=== PATIENT | male | born 1995 | race Caucasian/White ===

== ENCOUNTER 2017-03-03 16:16 | Inpatient (IN) | payer OTHER ==
[2017-03-03] MEDS ORDERED: OLANZapine 10 MG/2 ML VIAL IM ONE (16:23)
[2017-03-03] MEDS ORDERED: OLANZapine DISINTEGR 10 MG TAB PO ONE (16:23)
--- NOTE | 2017-03-03 16:25 | EDPHY ---
HPI/HX/ROS/PE/MDM Narrative: CHIEF COMPLAINT: Odd behavior HPI: This patient is a 21 year old male arriving via EMS for mental health evaluation of strange behaviors. He is currently staying at [facility] and began asking for drugs and attempting to touch people inappropriately. Upon arrival, he is asking to be taken to penitentiary and states "I am the next Michael Kamron". REVIEW OF SYSTEMS: Aside from elements discussed in the HPI, a comprehensive 10-point review of systems was reviewed and is negative. PMH: Bipolar, schizophrenic SOCIAL HISTORY: Staying at [facility]. PHYSICAL EXAM: General:Patient is alert, in no acute distress. ENT:Eyes are normal to inspection. ENT inspection normal. Neck: Normal inspection. Full range of motion. Respiratory:No respiratory distress. Breath sounds normal bilaterally. Cardiovascular: Regular rate and rhythm. Strong peripheral pulses. Normal cap refill. Abdomen:The abdomen is nontender to palpation. There are no peritoneal signs. There are normal bowel sounds. Back: Normal to inspection. No tenderness to palpation. Skin: Normal color. No rash. Warm and dry. Extremities: Normal appearance. Full range of motion. Neuro: Oriented x3. Normal motor function. Normal sensory function. Portions of this note were transcribed by an ED scribe. I personally performed the history, physical exam, and medical decision making; and confirm the accuracy of the information in the transcribed note. (Nathaniel Vale) [id number]: This patient has been accepted at [address] [place] [address] [facility]. By Dr. Shukla. Patient will be appropriately transfer there. ( Dony Penny) - Data Points Laboratory Results: Laboratory Results 03/03/17 16:35 03/03/17 16:35 03/03/17 03/03/17 03/03/17 16:35 16:35 16:30 WBC 7.31 10^3/uL 10^3/uL (3.80-9.50) RBC 4.71 10^6/uL 10^6/uL (4.40-6.38) Hgb 14.2 g/dL g/dL (13.7-17.5) Hct 40.7 % % (40.0-51.0) MCV 86.4 fL fL (81.5-99.8) MCH 30.1 pg pg (27.9-34.1) MCHC 34.9 g/dL g/dL (32.4-36.7) RDW 12.6 % % (11.5-15.2) Plt Count 234 10^3/uL 10^3/uL (150-400) MPV 9.5 fL fL (8.7-11.7) Neut % (Auto) 57.0 % % (39.3-74.2) Lymph % (Auto) 25.6 % % (15.0-45.0) [place] % (Auto) 11.6 % % (4.5-13.0) Eos % (Auto) 5.2 % % (0.6-7.6) Baso % (Auto) 0.3 % % (0.3-1.7) Nucleat RBC Rel Count 0.0 % % (0.0-0.2) Absolute Neuts (auto) 4.17 10^3/uL 10^3/uL (1.70-6.50) Absolute Lymphs (auto) 1.87 10^3/uL 10^3/uL (1.00-3.00) Absolute Monos (auto) 0.85 10^3/uL H 10^3/uL (0.30-0.80) Absolute Eos (auto) 0.38 10^3/uL 10^3/uL (0.03-0.40) Absolute Basos (auto) 0.02 10^3/uL 10^3/uL (0.02-0.10) Absolute Nucleated RBC 0.00 10^3/uL 10^3/uL (0-0.01) Immature Gran % 0.3 % % (0.0-1.1) Immature Gran # 0.02 10^3/uL 10^3/uL (0.00-0.10) Sodium 142 mEq/L mEq/L (134-144) Potassium 4.5 mEq/L mEq/L (3.5-5.2) Chloride 107 mEq/L mEq/L (97-110) Carbon Dioxide 21 mEq/l L mEq/l (22-31) Anion Gap 14 mEq/L mEq/L (8-16) BUN 14 mg/dL mg/dL (7-23) Creatinine 0.8 mg/dL mg/dL (0.7-1.3) Estimated GFR > 60 Glucose 93 mg/dL mg/dL (70-100) Calcium 9.1 mg/dL mg/dL (8.5-10.4) Urine Opiates Screen NEGATIVE (NEGATIVE) Urine Barbiturates NEGATIVE (NEGATIVE) Ur Phencyclidine Scrn NEGATIVE (NEGATIVE) Ur Amphetamine Screen NEGATIVE (NEGATIVE) U Benzodiazepines Scrn NEGATIVE (NEGATIVE) Urine Cocaine Screen NEGATIVE (NEGATIVE) U Marijuana (THC) Screen NEGATIVE (NEGATIVE) Ethyl Alcohol < 10 mg/dL mg/dL (0-10) Medications Given: Discontinued Medications Olanzapine (Zyprexa Im Injection) 10 mg IM EDNOW ONE Stop: 03/03/17 16:24 Last Admin: 03/03/17 16:41 Dose: Not Given Olanzapine (Zyprexa Zydis) 10 mg PO EDNOW ONE Stop: 03/03/17 16:24 Last Admin: 03/03/17 16:42 Dose: 10 mg General Initial Vital Signs: Initial Vital Signs Temperature (C) 36.5 C 03/03/17 16:42 Heart Rate 110 H 03/03/17 16:42 Respiratory Rate 16 03/03/17 16:42 Blood Pressure 135/89 H 03/03/17 16:42 O2 Sat (%) 98 03/03/17 16:42 O2 Delivery Mode Room Air Allergies/Adverse Reactions: No Known Allergies Allergy (Unverified 04/10/13 21:02) Home Medications: Medication Instructions Recorded CLONAZEPAM 03/03/17 Depakote 03/03/17 Ivalee Carbonate 03/03/17 Metformin HCl 03/03/17 Propranolol HCl 03/03/17 Seroquel 03/03/17 Zyprexa 03/03/17 Departure - Departure Disposition: [facility] IP Clinical Impression: Suicidal behavior Qualifiers: Attempted self-injury: without attempted self-injury Qualified Code(s): R46.89 - Other symptoms and signs involving appearance and behavior Condition: Fair Referrals: NONE *PRIMARY CARE P,. [Primary Care Provider] - As per Instructions
[2017-03-03 17:32] LABS: % IMMATURE GRANULYOCYTES 0.3 % (0.0-1.1); ABSOLUTE IMMATURE GRANULOCYTES 0.02 10^3/uL (0.00-0.10); ADD DIFF? NO; ADD MORPH? NO; ADD SCAN? NO; ATYPICAL LYMPHOCYTE FLAG 0 (0-99); FRAGMENT RBC FLAG 0 (0-99); HEMATOCRIT 40.7 % (40.0-51.0); HEMOGLOBIN 14.2 g/dL (13.7-17.5); LEFT SHIFT FLG 0 (0-99); LIPEMIA HEMOLYSIS FLAG 90 (0-99); MEAN CELL HEMOGLOBIN 30.1 pg (27.9-34.1); MEAN CELL HEMOGLOBIN CONCENTR. 34.9 g/dL (32.4-36.7); MEAN CELL VOLUME 86.4 fL (81.5-99.8); MEAN PLATELET VOLUME 9.5 fL (8.7-11.7); PLATELET CLUMPS FLAG 0 (0-99); PLATELET COUNT 234 10^3/uL (150-400); RED BLOOD CELL COUNT 4.71 10^6/uL (4.40-6.38); RED CELL DISTRIBUTION WIDTH 12.6 % (11.5-15.2)
[2017-03-03 17:38] LABS: ANION GAP 14 mEq/L (8-16); CALCIUM 9.1 mg/dL (8.5-10.4); CARBON DIOXIDE 21 mEq/l (22-31); CHLORIDE 107 mEq/L (97-110); CREATININE 0.8 mg/dL (0.7-1.3); ETHANOL SERUM < 10 mg/dL (0-10); GLOMERULAR FILTRATION RATE > 60; GLUCOSE 93 mg/dL (70-100); POTASSIUM 4.5 mEq/L (3.5-5.2); SODIUM 142 mEq/L (134-144)
[2017-03-04] MEDS ORDERED: MAG HYDROX/AL HYDROX/SIMETH 30 ML UDCUP PO PRN (02:24)
[2017-03-04] MEDS ORDERED: ACETAMINOPHEN 325 MG TAB PO PRN (02:24)
[2017-03-04] MEDS ORDERED: MAGNESIUM HYDROXIDE 30 ML UDCUP PO PRN (02:24)
[2017-03-04] MEDS ORDERED: LORazepam 0.5 MG TAB PO PRN (02:24)
[2017-03-04] MEDS ORDERED: OLANZapine DISINTEGR 10 MG TAB PO PRN (02:28)
[2017-03-04] MEDS ORDERED: LITHIUM CARBONATE 600 MG CAP PO SCH (02:30)
[2017-03-04] MEDS ORDERED: DIVALPROEX NA 500 MG TAB PO SCH (02:30)
[2017-03-04] MEDS ORDERED: OLANZapine DISINTEGR 10 MG TAB PO SCH ×2 (02:30→21:00)
[2017-03-04] MEDS: NICOTINE POLACRILEX 2 MG GUM B PRN ×6 (02:39→20:18)
[2017-03-04] MEDS ORDERED: QUEtiapine FUMARATE 100 MG TAB PO ONE (08:00)
[2017-03-04] MEDS ORDERED: clonazePAM 1 MG TAB PO ONE (08:00)
[2017-03-04] MEDS ORDERED: HALOPERIDOL LACT 5 MG/ML INJ IM PRN (12:30)
[2017-03-04] MEDS ORDERED: BENZTROPINE MESYLATE 2 MG/2 ML INJ IM PRN (12:30)
[2017-03-04] MEDS ORDERED: LORazepam 2 MG/ML INJ IM PRN (12:30)
[2017-03-04] MEDS ORDERED: LORazepam 1 MG TAB ONE (13:09)
[2017-03-04] MEDS ORDERED: BENZTROPINE MESYLATE 1 MG TAB ONE (13:13)
[2017-03-04] MEDS: LORazepam 1 MG TAB PO PRN ×3 (13:18→21:31)
[2017-03-04] MEDS: HALOPERIDOL 2 MG TAB PO PRN ×3 (13:18→21:31)
--- NOTE | 2017-03-04 14:23 | GCON ---
[f rep st] CONSULTATION INTERNAL MEDICINE CONSULTATION DATE OF CONSULTATION: 03/04/2017 REFERRING PHYSICIAN: Kenneth Shukla MD REASON FOR REFERRAL: Medical clearance for inpatient behavioral health stay. HISTORY OF PRESENT ILLNESS: The patient has been admitted to [facility] via the emergency department from [facility], where he was a resident under treatment for mental illness, with diagnoses of bipolar disorder and schizophrenia. His behavior was apparently uncontrolled at [facility], including aggressiveness and inappropriate touching of others. He was evaluated by the mental health team and admitted for further psychiatric care. Currently he is without any acute complaints. PAST MEDICAL HISTORY: 1. He reports a history of cardiac dysrhythmia with rapid heartrate, for which he was treated with propranolol. 2. Hypothyroidism. 3. Tobacco dependence. 4. Right thumb fracture. PAST SURGICAL HISTORY: He has had a surgical repair of the right thumb fracture. MEDICATIONS: 1. Metformin 500 mg p.o. b.i.d. 2. Quetiapine 100 mg p.o. t.i.d. 3. [place] 600 mg p.o. b.i.d. 4. Clonazepam 1 mg p.o. t.i.d., and 1 mg p.o. q.i.d. p.r.n. 5. Propranolol 20 mg p.o. t.i.d. 6. Levothyroxine 50 mcg p.o. q. day. 7. Olanzapine 20 mg p.o. b.i.d. 8. Divalproex ER 1000 mg p.o. q. day, and 1500 mg p.o. q.h.s. 9. Quetiapine 100 mg p.o. q.i.d. p.r.n. 10. Olanzapine 5 mg p.o. b.i.d. p.r.n. 11. Milk of magnesia p.r.n. 12. Magnesium hydroxide p.r.n. 13. Ibuprofen 200 mg p.o. q.4 hours p.r.n. 14. Acetaminophen 650 mg p.o. q.4 hours p.r.n. 15. Diphenhydramine 50 mg p.o. t.i.d. p.r.n. ALLERGIES: He had an intolerance to Invega with bradycardia. SOCIAL HISTORY: He is a smoker. He has a history of alcohol and other substance abuse. He was living at [facility]. He asks if he can leave now and return to [facility]. He also reports that he is homeless. FAMILY HISTORY: There is a history of depression and alcoholism on both sides of his family. REVIEW OF SYSTEMS: He denies pain, fevers, chills, weight change, cough, dyspnea, palpitations, chest pain, nausea, vomiting, constipation, or diarrhea. Otherwise, a 10-point review of systems is negative. PHYSICAL EXAM: VITAL SIGNS: Blood pressure at 2:48 this morning was 116/70, heart rate was 91, respiratory rate was 18, oxygenation was 97% on room air, temperature was 36.4 degrees centigrade. His weight is 86.2 kg for a body mass index of 22.5. GENERAL: This is a well-nourished, well-developed man, somewhat unkempt, appears his chronologic age, cooperative, and in no acute distress. HEENT: Extraocular movements are intact. Pupils are equal, round, and reactive to light. Mucous membranes are moist. Dentition is in good condition. NECK: Supple. HEART: There is regular rate and rhythm with no murmurs, rubs, or gallops. LUNGS: Clear to auscultation bilaterally. ABDOMEN : Soft, nontender, nondistended with normoactive bowel sounds. EXTREMITIES: There is no cyanosis, clubbing, or edema. NEUROLOGIC: He is alert and oriented x3. Cranial nerves 2-12 are grossly intact. There is no focal weakness. Sensation is intact to light touch and gait is within normal limits. LABORATORY STUDIES: Drawn in the emergency department. CBC was overall within normal limits. There was a slight increase in absolute monocytes of no clinical significance. Serum chemistry revealed a slightly low carbon dioxide of 21. Otherwise, renal function and electrolytes were within normal limits. Toxicology screen in the urine was negative for any substances of abuse, and in the serum was negative for ethyl alcohol. He had labs drawn 5 days ago, including liver function tests, which were normal, an ammonia level which was normal, hemoglobin A1c which was 5.3, lipid panel which showed actually a low cholesterol at 118, and otherwise was unremarkable. TSH was mildly elevated at 8.1, and free T4 was normal at 1.53. ASSESSMENT/RECOMMENDATIONS: 1. Mental health issues pending further evaluation and management per Psychiatry and the mental health team. 2. Tachycardia of unclear etiology. He might simply be somewhat dehydrated, though his lab studies yesterday were not consistent with dehydration. He was, if anything, hypothyroid a few days ago, not hyperthyroid. Unclear about the nature of his cardiac dysrhythmia. There is a report in the computer that it was due to treatment with paliperidone. Advised continued monitoring of his vital signs. If he is persistently tachycardic. Further evaluation can be done. 3. Hypothyroidism. Continue levothyroxine. 4. Tobacco dependence syndrome. He was not interested in smoking cessation. Thank you very much for including me in the care of the patient, and please do not hesitate to contact me or the hospitalist service should there be need for further medical evaluation. /[id number]/MODL MTDD
[2017-03-04 14:47] LABS: LITHIUM 0.5 mEq/L (0.6-1.2)
--- NOTE | 2017-03-04 15:08 | BAPA ---
[f rep st] ADMISSION PSYCHIATRIC ASSESSMENT CHIEF COMPLAINT: "Go away, I don't want to talk." HISTORY OF PRESENT ILLNESS: This is a 22-year-old single man who was brought to the [facility] E D on an M1 hold initiated by his psychiatrist, Dr. Levi at [facility]. Per the M1 hold, patient was unable to follow directions from staff. He has been posturing with the nurse in an aggr essive manner. He has left lit cigarettes around [facility] where he was residing and making inap propriate request for meds. He has touched several other clients without permission. He is gravely disabled at this time. Also noted in the ED note from physician, the patient has made a statement that he should go to care home and he is Michael Lundy. Per records, the patient has been previously diag nosed with bipolar disorder, alcohol and marijuana use disorder. Patient was discharged from [facility] in [place] on 02/25/2017, and admitted to [facility] on 02/25/2017. Patient had been admitted to [facility] from 02/04/2017 to 02/25/2017 due to shea with psychosis. Patient has been hospitalized for psychiatric treatment 4 times in the last 1 0 months. Per report, father took Arnoldo to [facility] ER on 02/01/2017 because of shea and ps ychosis, but he was sent home. He presented again on 02/04 because of concerns of medication toxici ty, tremors, slow shuffling gait, drooling and incontinence of bowel and bladder. Per report, santino nt decompensated since his discharge from [facility] on 01/22/2017. On 02/15/2017, patient had a syn copal episode, hit the back of his head, was on the medical floor for 3 days with arrhythmia and sev ere bradycardia thought to be due to Invega. PAST PSYCHIATRIC HISTORY: Past hospitalizations at [facility], date unknown, [facility] on 016 for 15 days, [facility] on January 09 through January 23, 2017, and [place] [id number] 02/04 to 02/25/2017. He was discharged from [facility] to [facility] at [facility] on 02/25/2017. This will be his 3rd hospitalization this year, his 4th in the last 10 months. According to staff at [facility], patient was exhibiting aggressive inappropriate behavior to garcia other clients and staff precipitating his M1 hold. Records indicate that he was on a short-ter m certification but does not specify when the short-term certification was initiated, possibly gabein g one of his previous psychiatric hospitalizations. Supposedly the short-term cert expires on 05/10. I do not know if [facility] took over the short-term certification, will look into th is. Other information about the patient's past psychiatric history, according to father the patient has no reported suicide attempts previously and no prior psychiatric hospitalizations before 2015. Dr. Levi is his current psychiatrist through [facility]. ALLERGIES: The patient denies any known drug allergies. CURRENT MEDICATIONS: Many of his medications have been changed since he got admitted to [facility] on 02/25/2017. His of Depakote have been increased, Seroquel was added, his dose of olanzapine was increased and lithium was added to his medication regimen. So current medications are as follows: Depakote ER 1000 mg p.o. q.a.m. and 1500 mg p.o. q.h.s., Zyprexa 20 mg p.o. twice daily, propranolol 20 mg p.o. three times daily, Synthroid 50 mcg p.o. q.a.m., clonazepam 1 mg p.o. three times daily, lithium ER 600 mg p.o. twice daily, metformin 500 mg p.o. twice daily, Seroquel 1 00 mg p.o. three times daily. ALLERGIES: Even though the patient denied any drug allergies, he did supposedly have a negative rosemarie ction to taking Invega. It is unclear whether or not the antipsychotic was responsible for the apollo ent developing a syncopal episode and bradycardia when he was admitted to the ED, but that was suspe cted cause. PAST MEDICAL HISTORY: Patient has a history of several minor concussions with some loss of consciou sness. PREVIOUS SURGERIES: Include surgery on his thumb due to an injury sustained while drinking. SOCIAL HISTORY: Patient currently resides at [facility] though since getting out of his [facility] at [facility] in [place] on 02/25/2017. The patient is not currently in a rela tionship. He dropped out of college. He completed high school supposedly with a GPA of 3.8. He di d 3 semesters at [employer] and dropped out due to his mental illness. According to developmental r ecords, the patient's mother had a normal and delivery. He achieved normal developmental milestones. There was no report of any childhood illnesses. The patient is single, never w ith no children. Prior to his recent hospitalization and stay at [facility], he was living with h is father in [place]. SUBSTANCE USE HISTORY: Per reports from collateral, patient has an extensive history of alcohol abu se since his teenage years. He also has a history of daily marijuana use since high school. Father reports that in 2011, patient used opioids, Adderall, LSD and cocaine, and reports that he had infr equent use of Ecstasy. Father also reports that the patient has used cough syrup in the past. The patient's father is a recovering alcoholic and is involved in AA. The patient has a DUI arrest at t he age of 17 for alcohol. He has also had arrest for minor in possession of alcohol. FAMILY HISTORY: Father is a recovering alcoholic involved in AA and also biological father has a hi story of depression. Mother also has history of alcohol abuse, depression and eating disorder. On paternal side of the family, there is a history of Asperger's disorder. ADMISSION LABS: White cell count was 7.3, hemoglobin was 14.2, hematocrit was 40.7, platelet count was 234, absolute neutrophils were 4.17. Sodium was 142, potassium 4.5, chloride 107, BUN was 14, c reatinine was 0.8, glucose was 93. Urine tox screen was negative for all drugs of abuse. His alcoh ol level was less than 10. The patient was seen in the ED, looks like on 02/27/2017, he had a Depak ote level of 55 at that time. He was only on 1500 mg q.h.s. of Depakote and we have no recent lithi um level. MENTAL STATUS EXAMINATION: At the time that this psychiatrist attempted to interview the patient, lawrence chaparro was in seclusion. He had threatened staff and was verbally aggressive and posturing toward staff on the unit. He was given 1 time dose of Zyprexa 10 mg p.o. which he took voluntarily. He was also given Ativan 1 mg p.o. which he took voluntarily. Patient then went to sleep. After 2 hours, the psychiatrist went to do a [id number] with the patient. The patient was still sleeping, would not respond to questions, would not get up, would not make eye contact. Based upon his presentation ear lier today, his affect was extremely labile. His mood was elevated. His thought process was extrem zakia disorganized, grandiose. His thought content, he was delusional, paranoid. He was alert and or iented to person. He denied any active thoughts of suicide, but he did seem to be experiencing gran diose delusions. His intellect, based upon prior educational and occupational histories, seems to b e average. His insight and judgment are both significantly impaired. IMPRESSION: This is a 22-year-old male with very significant episodes of shea occurring quite freq uently over the past year. He has had 4 hospitalizations all for acute shea in the presence of azeb oing bipolar 1 disorder, which was only recently diagnosed while the patient was a college student. He has no prior psych history before college although he has a pretty extensive history of substanc e use, which probably has contributed to exacerbating his mood lability as well as possibly some of his delusions and erratic behaviors. DIAGNOSES: 1. Bipolar disorder type 1, most recent episode manic. 2. Cannabis use disorder, severe. 3. Alcohol use disorder, severe. 4. Amphetamine use disorder, in remission. 5. Stimulant use disorder, in remission. 6. Opioid use disorder, in remission. 7. Cocaine use disorder, in remission. 8. Hallucinogen use disorder, in remission. 9. Psychosocial stressors include multiple recent hospitalizations, dropping out of college, financ ially supported by his parents, unemployed, lack of social support, difficulty with interpersonal re lationships, and long-term recovery from substance use, recent onset of severe mental illness. PLAN: 1. Admit patient to behavioral health unit on an M1 hold, although if the patient is currently on a short-term certification, we will drop that hold as soon as we get legal documentation of the short -term cert. 2. Monitor closely for safety and suicide precautions. 3. The patient was in seclusion this morning due to his aggressive behavior and threats. He is cur rently on emergency medications x24 hours. He has an order for Haldol IM as well as Ativan IM and C ogentin IM to be administered if patient refuses his Zyprexa. Will restart medications per his outp atient protocol with the following exceptions: Zyprexa dose will be 15 mg p.o. twice daily instead of 20 mg p.o. b.i.d. since 30 is the max safe dose within 24 hours. Also will reduce his Depakote t o 2000 mg p.o. q.h.s. rather than in divided doses the way it was previously being delivered. We wi ll hold his propranolol for now as well as his scheduled Klonopin as he is on 2 mg Ativan q.4 hours p.r.n. which should treat his anxiety. He is also going to be on Haldol 2 mg p.o. q.4 hours p.r.n. for anxiety, agitation and psychosis. We will resume his thyroid medication as well as his metformi n. 4. This MD has left a voice mail message for Dr. Nathaniel Levi, who is the patient's treating psyc hiatrist at [facility], to help coordinate care and plan for discharge. It is unclear whethe r the patient will be able to return to [facility] or not. 5. The patient will engage in individual, group, and milieu therapies as much as possible. At the current time, patient is not exhibiting any signs of aggression or hostility and he is not making an y threats or posturing. He has been released from seclusion and has re-entered the milieu. 6. Estimated length of stay is 5-7 days. /[id number]/MODL
[2017-03-04] MEDS: metFORMIN HCL 500 MG TAB PO SCH (17:10)
[2017-03-04] MEDS: OLANZapine DISINTEGR 5 MG TAB PO SCH (19:32)
[2017-03-04] MEDS: BENZTROPINE MESYLATE 1 MG TAB PO SCH (19:32)
[2017-03-04] MEDS: LITHIUM CARBONATE ER 300 MG TAB PO SCH (19:32)
[2017-03-04] MEDS ORDERED: DIVALPROEX ER 500 MG TAB PO SCH ×2 (21:00)
[2017-03-05] MEDS ORDERED: LEVOTHYROXINE 25 MCG TAB PO SCH (06:00)
[2017-03-05] MEDS: LORazepam 1 MG TAB PO PRN ×3 (06:57→15:03)
[2017-03-05] MEDS: NICOTINE POLACRILEX 2 MG GUM B PRN ×5 (06:57→17:20)
[2017-03-05] MEDS: HALOPERIDOL 2 MG TAB PO PRN ×4 (07:07→16:04)
[2017-03-05] MEDS: metFORMIN HCL 500 MG TAB PO SCH ×2 (08:57→17:20)
[2017-03-05] MEDS: BENZTROPINE MESYLATE 1 MG TAB PO SCH ×2 (08:58→19:21)
[2017-03-05] MEDS: OLANZapine DISINTEGR 5 MG TAB PO SCH ×2 (08:59→19:22)
[2017-03-05] MEDS: LEVOTHYROXINE 25 MCG TAB PO SCH (09:00)
[2017-03-05] MEDS: LITHIUM CARBONATE ER 300 MG TAB PO SCH ×2 (09:03→19:21)
--- NOTE | 2017-03-05 12:40 | SOAPPROG ---
SOAP Progress Note Assessment/Plan: Assessment: 03/05/17 12:34 Plan: 1. Reviewed extensive records from [facility] as well as more recent records from [facility]. Patient was placed on STC by Anjum Brewster MD at [facility] on 02/07/17. The STC was transferred to "[facility]" on 02/25/17. At the time of d/c from [facility], the treating psych MD noted that patient was still experiencing AH/VH, paranoia, delusions, acting aggressively and impulsively and showed little benefit from treatment after more than 2 weeks inpatient. According to this report, patient was clearly not stable at time of discharge. Records from [facility] indicate that despite significant increased doses and addition of medications, his presentation was pretty much the same during his stay at [facility]. Given that his current admission represents his 4th admission to psych facility in 2 months, it seems patient requires much longer time to stabilize that he has been allowed in recent hospitalizations. His current presentation is exactly similar to his presentation at [facility], [facility] and [facility]. 2. CCM for now and give more time to stabilize. 3. MD left another voicemail for Dr. Levi with an update on patient's condition. 4. Patient continues to take meds voluntarily, e-meds will today. There has been no recurrence of verbal threats or posturing. Subjective: Met with patient and discussed with staff. MD observed patient pacing in hallways talking to Mechio. He exhibited pressured speech and racing thoughts. Patient also has some grandiosity, because he is making plans for future success that is unlikely until his shea is more effectively treated. He has also exhibited hypersexuality and intrusive behaviors toward female peers. He has been reminded numerous times by staff about appropriate boundaries. Patient told RN that he had been abducted by aliens who tried to stop him from "controlling all of [place]" with his mind. Patient denies any SI /HI. Objective: Vital Signs Temp Pulse Resp BP Pulse Ox 36.4 C 91 18 116/70 97 03/04/17 02:48 03/04/17 02:48 03/04/17 02:48 03/04/17 02:48 03/04/17 02:48 MSE: Tall, thin, wearing jeans and several layers of tops including a fleece. He is pacing hallways and talking animatedly to staff. Affect: Labile, elevated Mood: Elevated TP: Disorganized, circumstantial TC: Paranoid, delusions, grandiose, denies SI/HI Insight/Judgment: Impaired - Time Spent With Patient Time Spent With Patient: 20" - Pending Discharge Pending Discharge Within 24 Hours: No ICD10 Worksheet Patient Problems: Problems Problem Status Onset Cannabis use disorder, severe, dependence Acute Severe manic bipolar 1 disorder with psychotic behavior Acute Suicidal behavior Acute - ICD10 Problem Qualifiers (1) Severe manic bipolar 1 disorder with psychotic behavior (2) Cannabis use disorder, severe, dependence
[2017-03-05] MEDS ORDERED: HALOPERIDOL 2 MG TAB PO ONE (16:00)
[2017-03-05 18:47] LABS: ALANINE AMINOTRANSFERASE 26 IU/L (21-72); ALBUMIN 3.7 g/dL (3.5-5.0); ALKALINE PHOSPHATASE 62 IU/L (38-126); ASPARTATE AMINOTRANSFERASE 23 IU/L (17-59); BILIRUBIN,TOTAL 0.3 mg/dL (0.1-1.4); BILIRUBIN-CONJUGATED 0.2 mg/dL (0.0-0.5); BILIRUBIN-UNCONJUGATED 0.1 mg/dL (0.0-1.1); TOTAL PROTEIN 6.2 g/dL (6.3-8.2)
[2017-03-05] MEDS: DIVALPROEX ER 500 MG TAB PO SCH (19:21)
[2017-03-06] MEDS: HALOPERIDOL 2 MG TAB PO PRN ×3 (07:00→20:40)
[2017-03-06] MEDS: LORazepam 1 MG TAB PO PRN ×3 (07:00→19:20)
[2017-03-06] MEDS: NICOTINE POLACRILEX 2 MG GUM B PRN ×5 (07:00→16:26)
[2017-03-06] MEDS: OLANZapine DISINTEGR 5 MG TAB PO SCH ×2 (08:04→20:08)
[2017-03-06] MEDS: metFORMIN HCL 500 MG TAB PO SCH ×2 (08:04→17:00)
[2017-03-06] MEDS: BENZTROPINE MESYLATE 1 MG TAB PO SCH ×2 (08:05→20:08)
[2017-03-06] MEDS: LITHIUM CARBONATE ER 300 MG TAB PO SCH ×2 (08:05→20:07)
[2017-03-06] MEDS: LEVOTHYROXINE 25 MCG TAB PO SCH (09:47)
[2017-03-06] MEDS: diphenhydrAMINE 50 MG CAP PO PRN ×3 (09:47→21:11)
--- NOTE | 2017-03-06 12:21 | SOAPPROG ---
SOAP Progress Note Assessment/Plan: Assessment: 03/05/17 12:34 Plan: 1. Reviewed extensive records from [facility] as well as more recent records from [facility]. Patient was placed on STC by Anjum Brewster MD at [facility] on 02/07/17. The STC was transferred to "[facility]" on 02/25/17. At the time of d/c from [facility], the treating psych MD noted that patient was still experiencing AH/VH, paranoia, delusions, acting aggressively and impulsively and showed little benefit from treatment after more than 2 weeks inpatient. According to this report, patient was clearly not stable at time of discharge. Records from [facility] indicate that despite significant increased doses and addition of medications, his presentation was pretty much the same during his stay at [facility]. Given that his current admission represents his 4th admission to psych facility in 2 months, it seems patient requires much longer time to stabilize that he has been allowed in recent hospitalizations. His current presentation is exactly similar to his presentation at [facility], [facility] and [facility]. 2. CCM for now and give more time to stabilize. 3. MD left another voicemail for Dr. Levi with an update on patient's condition. 4. Patient continues to take meds voluntarily, e-meds will today. There has been no recurrence of verbal threats or posturing. 03/06/17 12:15 Plan: 1. Psych MD was contacted by unit staff last night who reported patient was making statements that he would "hurt" peers, but did not identify anyone in particularly. Staff reported patient was very agitated and constantly asking for PRN meds. Staff were eventually able to de-escalate patient and overnight RN , Surya, stated patient was much calmer and more cooperative after a visit with his FOC. 2. MD increased Depakote ER to 2,500 QHS last night. 3. [place] increased to 600mg QAM and 900 QHS 4. Benadryl 50mg Q4h PRN for agitation 5. Patient still has Haldol 2mg q4h PRN for agitation/psychosis as well as Ativan 2mg Q4h PRN for agitation NTE TDD 10mg. 6. MD corresponded by text with Dr. Levi who stated he would like patient to return to [facility] when he is more stable. Dr. Levi is going on vacation starting 03/06/[address] Marci Paez will be covering for him. Subjective: Met with patient with RNNatalie, and another RN present. Patient presented as calm, cooperative, willing to listen and ask questions, but very perseverative about getting Adderall. His ability to focus was limited, but much improved from time of admission. He reports that he feels "I can't think clearly" and admits "I have a lot of energy." Patient states he "can't find clarity" in his thoughts and feels "confused" and in a "haze-daze" most of the time. Patient says his memory is "very bad" as well. He focuses a lot on his premorbid self, when he was in and recognizes how much things have changed, but is not willing or able to acknowledge that he has a serious mental illness. He thinks that because he took Adderall in HS and was a "good student" that a psychostimulant would reverse the changes that have happened to his mental state since HS. Patient says in HS he was "social" and "outgoing" and functioned well academically. Patient also admits to using many different drugs while in HS. He says he abused his Adderall prescription, and used THC, Ecstasy , LSD. He says one night he remembers taking "7 of my Adderall, doing Ecstasy and taking some LSD." He reports when he woke up the next day, "nothing was ever the same after that...I didn't feel right in my head." Now, patient recognizes that he has been "psychotic" at times. He reports experiencing "delusions" which he describes as "thinking I was fighting aliens. " He also recognizes that he got into trouble for "not behaving" and "yelling at people." Even thought patient knows his treating MDs in recent hospitalizations have diagnosed him with bipolar I, manic type with psychotic features, patient continues to believe, or at least hope, that his actual diagnosis is ADHD. MD explained that while there are some sxs that overlap between ADHD and Beena (hyperactivity, impulsivity, distractibility, racing thoughts), that patient's with ADHD do not have delusions or other psychotic sxs. Patient seems able to comprehend this at some level even if he is not totally willing to admit it because he tells , "so that's a hard 'no' on the Adderall?" Patient says he wants to return to [facility] today, but explains Dr. Levi would like him to be stable enough to participate in the program there before he returns. Patient agrees to work on 3 things: 1) be more respectful of staff and peers (no outbursts or threatening behavior), 2) comply with unit rules and follow a structured routine, and 3) make appropriate requests of staff (not asking for meds, like Adderall and Viagra, that has explained are not warranted). Patient said, "well I'm going to be myself," but agreed he could do these 3 things. Patient denied any AH/VH, paranoia and denied any current delusions. He also denied any thoughts, plan or intent to harm himself or anyone else. Objective: Vital Signs Temp Pulse Resp BP Pulse Ox 36.4 C 91 18 116/70 97 03/04/17 02:48 03/04/17 02:48 03/04/17 02:48 03/04/17 02:48 03/04/17 02:48 MSE: Tall, disheveled, wearing jeans and 2 different fleece pullovers. Affect: Euthymic Mood: "Irritated" TP: Tangential, perseverative, more coherent than prior days TC: Denies any AH/VH, no evidence of paranoia or delusions, no SI/HI Insight/Judgment: Impaired - Time Spent With Patient Time Spent With Patient: 30" - Pending Discharge Pending Discharge Within 24 Hours: No ICD10 Worksheet Patient Problems: Problems Problem Status Onset Cannabis use disorder, severe, dependence Acute Severe manic bipolar 1 disorder with psychotic behavior Acute Suicidal behavior Acute - ICD10 Problem Qualifiers (1) Severe manic bipolar 1 disorder with psychotic behavior (2) Cannabis use disorder, severe, dependence
[2017-03-06] MEDS: DIVALPROEX ER 500 MG TAB PO SCH (20:08)
[2017-03-07] MEDS: LORazepam 1 MG TAB PO PRN ×4 (04:04→19:49)
[2017-03-07] MEDS: diphenhydrAMINE 50 MG CAP PO PRN ×2 (04:04→09:29)
[2017-03-07] MEDS: HALOPERIDOL 2 MG TAB PO PRN ×4 (06:44→19:49)
[2017-03-07] MEDS: LITHIUM CARBONATE ER 300 MG TAB PO SCH ×2 (08:16→19:55)
[2017-03-07] MEDS: metFORMIN HCL 500 MG TAB PO SCH ×2 (08:16→16:48)
[2017-03-07] MEDS: NICOTINE POLACRILEX 2 MG GUM B PRN ×5 (08:16→19:14)
[2017-03-07] MEDS: OLANZapine DISINTEGR 5 MG TAB PO SCH ×2 (08:16→19:55)
[2017-03-07] MEDS: BENZTROPINE MESYLATE 1 MG TAB PO SCH ×2 (08:16→19:55)
[2017-03-07] MEDS: LEVOTHYROXINE 25 MCG TAB PO SCH (09:19)
--- NOTE | 2017-03-07 14:04 | SOAPPROG ---
SOAP Progress Note Assessment/Plan: Assessment: 03/05/17 12:34 Plan: 1. Reviewed extensive records from [facility] as well as more recent records from [facility]. Patient was placed on STC by Anjum Brewster MD at [facility] on 02/07/17. [facility] on 02/25/17. At the time of d/c from [facility], the treating psych MD noted that patient was still experiencing AH/VH, paranoia, delusions, acting aggressively and impulsively and showed little benefit from treatment after more than 2 weeks inpatient. According to this report, patient was clearly not stable at time of discharge. Records from [facility] indicate that despite significant increased doses and addition of medications, his presentation was pretty much the same during his stay at [facility]. Given that his current admission represents his 4th admission to psych facility in 2 months, it seems patient requires much longer time to stabilize that he has been allowed in recent hospitalizations. His current presentation is exactly similar to his presentation at [facility], [facility] and [facility]. 2. CCM for now and give more time to stabilize. 3. MD left another voicemail for Dr. Levi with an update on patient's condition. 4. Patient continues to take meds voluntarily, e-meds will today. There has been no recurrence of verbal threats or posturing. 03/06/17 12:15 Plan: 1. Psych MD was contacted by unit staff last night who reported patient was making statements that he would "hurt" peers, but did not identify anyone in particularly. Staff reported patient was very agitated and constantly asking for PRN meds. Staff were eventually able to de-escalate patient and overnight RN , Surya, stated patient was much calmer and more cooperative after a visit with his FOC. 2. MD increased Depakote ER to 2,500 QHS last night. 3. [place] increased to 600mg QAM and 900 QHS 4. Benadryl 50mg Q4h PRN for agitation 5. Patient still has Haldol 2mg q4h PRN for agitation/psychosis as well as Ativan 2mg Q4h PRN for agitation NTE TDD 10mg. 6. MD corresponded by text with Dr. Levi who stated he would like patient to return to [facility] when he is more stable. Dr. Levi is going on vacation starting 03/06/[address] Marci Paez will be covering for him. 03/07/17 14:01 Plan: 1. Maintain current doses of Depakote, [place] and Zyprexa. 2. Will need repeat VPA level on 03/11/17 (give HS dose early prior to blood draw) . 3. Will need repeat lithium level on 03/11/17 (give HS dose early prior to blood draw). 4. Will decrease Haldol PRN to q6hrs. Continue with Ativan PRN as benzos will be most helpful to treat shea. 5. Have requested that Dr. Paez or therapist from [facility] meet with [place] on 03/10/17 to evaluate for transfer back to [facility] on Friday or Friday if possible. Subjective: Met with patient and discussed with staff. Patient is much calmer, more cooperative, polite and presents with better focus and less agitation and response to stimuli. He is still disorganized and demonstrates impaired insight and judgment. He is no longer perseverating on Adderall, but still wants Viagra. He told MD, "I"m cured, I don't have schizophrenia anymore." He also told MD, "I don't want to go back to [facility]...I want to get my own place and live in [place]." MD explained that he will be on vacation next week, but that MD has requested staff from [facility] come to evaluate patient early next week. MD encouraged patient to follow routine and structure while in hospital and talk with staff from [facility] about his options for treatment after his inpatient stay. Patient was cooperative and said he would follow this plan. Staff has developed a behavioral support plan for patient and so far he is complying with routine and expectations. He denies any SI/HI. Objective: Vital Signs Temp Pulse Resp BP Pulse Ox 36.4 C 91 18 116/70 97 03/04/17 02:48 03/04/17 02:48 03/04/17 02:48 03/04/17 02:48 03/04/17 02:48 MSE: Tall, wearing pants and fleece pullover which is on backwards, unkempt, disheveled. Affect: Flat Mood: "Great" TP: Tangential, illogical TC: Denies any AH/VH, still delusional, denies SI/HI Insight/Judgment: Impaired - Time Spent With Patient Time Spent With Patient: 25" - Pending Discharge Pending Discharge Within 24 Hours: No Pending Discharge Date: 03/03/17 (Have requested Dr. Paez or [facility] staff evaluate patient on Friday for possible d/c back to [facility]) ICD10 Worksheet Patient Problems: Problems Problem Status Onset Cannabis use disorder, severe, dependence Acute Severe manic bipolar 1 disorder with psychotic behavior Acute Suicidal behavior Acute - ICD10 Problem Qualifiers (1) Severe manic bipolar 1 disorder with psychotic behavior (2) Cannabis use disorder, severe, dependence
[2017-03-07] MEDS: DIVALPROEX ER 500 MG TAB PO SCH (19:55)
[2017-03-08] MEDS: HALOPERIDOL 2 MG TAB PO PRN (07:23)
[2017-03-08] MEDS: NICOTINE POLACRILEX 2 MG GUM B PRN ×5 (07:23→19:49)
[2017-03-08] MEDS: LORazepam 1 MG TAB PO PRN ×2 (07:23→21:37)
[2017-03-08 07:52] VITALS: TEMP 97.8; O2SAT 94
[2017-03-08] MEDS: OLANZapine DISINTEGR 5 MG TAB PO SCH ×2 (08:35→19:44)
[2017-03-08] MEDS: LITHIUM CARBONATE ER 300 MG TAB PO SCH ×2 (08:35→19:44)
[2017-03-08] MEDS: BENZTROPINE MESYLATE 1 MG TAB PO SCH ×2 (08:36→19:44)
[2017-03-08] MEDS: metFORMIN HCL 500 MG TAB PO SCH ×2 (08:36→16:56)
[2017-03-08] MEDS: LEVOTHYROXINE 25 MCG TAB PO SCH (09:30)
[2017-03-08] MEDS: diphenhydrAMINE 50 MG CAP PO PRN (10:40)
--- NOTE | 2017-03-08 15:02 | SOAPPROG ---
SOAP Progress Note Assessment/Plan: Assessment: 22yo CM with BMD manic/psychotic acute, and THC dependence adm from [facility] due to continued shea/psychosis despite recent d/c from another inpt psych hosp , needing longer period of stabilization 03/08/17 14:57 slept 8.5hr reports feeling "bored" and this is why he requests prn meds when available, b/ c nothing else to do. attending some groups, was asked to leave one gp today b/ c persev on wanting THC. states he wants to leave to smoke THC. Mother Tricia present during interview. States pt was better than last week, able to have better conversation, humor was back, and felt he was perhaps > 50% to baseline. MSE: tall, casually dressed, nml/loud vol speech, incr rate not pressured, mild rocking side to side as standing during interview. mood "pissed off", affect irritable. TP- persev on not needing to be here, wanting THC and Adderall. Likes to have szp, "comforting to hear voices". +AH are "mumbling" and mostly gone, which is very frustrating and upsetting to him b/c likes the "constant company" of +AH and voices talking to him, otherwise feels lonely. No command AH. Denied SI or HI, but added "I had thoughts of killing someone just to get out of this system...2 months versus 30 years, [facility]. I think I have to be patient or I'll be trapped in purgatory (here) forever". Denied current or any specific HI thoughts/plan or intent. States his thought was "to cut off someone' s leg with a samurai sword", but has no sword, plan or intent. Added, "but when in [employer] I did have thoughts to kill my best friend" by pouring gasoline in room "b/c he was more popular". poor insight/jdgmt. cognition otherwise conversationally intact. Had very fine LUE tremor w/extension, not bothersome. denied feeling internal restlessness. Denied other med s/e, except that the voices are gone and he'd like them back. "I wanna get high, I wanna stay high" PLAN: continue current meds: zyprexa 15 bid, Li 600/900, VPA 2500 + prns Using 6-mg prn Lorazepam daily over past 3 days, monitor for akathisia no SI, reports has had nonspecific HI/harm to others and thoughts as noted above. Objective: Vital Signs Temp Pulse Resp BP Pulse Ox 36.6 C 98 18 127/72 H 94 03/08/17 07:50 03/08/17 07:50 03/08/17 07:50 03/08/17 07:50 03/08/17 07:50 Medications Generic Name Dose Route Start Last Admin Trade Name Freq PRN Reason Stop Dose Admin Olanzapine 15 mg 03/04/17 21:00 03/08/17 08:35 Zyprexa Zydis PO 08/31/17 20:59 15 mg BID CADEN Nicotine Polacrilex 2 mg 03/04/17 02:24 03/08/17 10:23 Nicorette B 08/31/17 02:23 2 mg Q1HR PRN Nicotine Withdrawal Benztropine Mesylate 1 mg 03/04/17 21:00 03/08/17 08:36 Cogentin PO 08/31/17 20:59 1 mg BID CADEN Diphenhydramine HCl 50 mg 03/05/17 18:30 03/08/17 10:40 Benadryl PO 09/01/17 18:29 50 mg Q4HRS PRN Agitation Divalproex Sodium 2,500 mg 03/05/17 18:23 03/07/17 19:55 Depakote Er PO 08/31/17 20:59 2,500 mg HS CADEN Haloperidol 2 mg 03/04/17 12:26 03/08/17 07:23 Haldol PO 08/31/17 12:25 2 mg Q4HRS PRN Agitation Levothyroxine Sodium 50 mcg 03/05/17 10:00 03/08/17 09:30 Synthroid PO 09/01/17 09:59 50 mcg DAILY10 CADEN [place] Carbonate 900 mg 03/05/17 21:00 03/07/17 19:55 Lithobid PO 09/01/17 20:59 900 mg HS CADEN [place] Carbonate 600 mg 03/06/17 09:00 03/08/17 08:35 Lithobid PO 09/02/17 08:59 600 mg DAILY CADEN Lorazepam 2 mg 03/04/17 12:23 03/08/17 07:23 Ativan PO 08/31/17 12:22 2 mg Q4HRS PRN Anxiety, Able to Take PO Metformin HCl 500 mg 03/04/17 18:00 03/08/17 08:36 Glucophage PO 08/31/17 17:59 500 mg BIDMEAL CADEN - Time Spent With Patient Time Spent With Patient: 25min - Pending Discharge Pending Discharge Within 24 Hours: No Pending Discharge Within 48 Hours: No ICD10 Worksheet Patient Problems: Problems Problem Status Onset Cannabis use disorder, severe, dependence Acute Severe manic bipolar 1 disorder with psychotic behavior Acute Suicidal behavior Acute
[2017-03-08] MEDS: DIVALPROEX ER 500 MG TAB PO SCH (19:43)
[2017-03-09] MEDS: LITHIUM CARBONATE ER 300 MG TAB PO SCH ×2 (08:49→20:19)
[2017-03-09] MEDS: metFORMIN HCL 500 MG TAB PO SCH ×2 (08:50→16:54)
[2017-03-09] MEDS: BENZTROPINE MESYLATE 1 MG TAB PO SCH ×2 (08:50→20:20)
[2017-03-09] MEDS: OLANZapine DISINTEGR 5 MG TAB PO SCH ×2 (08:50→20:19)
[2017-03-09] MEDS: NICOTINE POLACRILEX 2 MG GUM B PRN ×3 (08:51→17:41)
[2017-03-09] MEDS: LORazepam 1 MG TAB PO PRN (09:47)
[2017-03-09] MEDS: LEVOTHYROXINE 25 MCG TAB PO SCH (10:00)
[2017-03-09] MEDS: DIVALPROEX ER 500 MG TAB PO SCH (20:19)
--- NOTE | 2017-03-09 21:31 | SOAPPROG ---
SOAP Progress Note Assessment/Plan: Assessment: 22yo CM with BMD manic/psychotic acute, and THC dependence adm from [facility] due to continued shea/psychosis despite recent d/c from another inpt psych hosp , needing longer period of stabilization 03/08/17 14:57 slept 8.5hr reports feeling "bored" and this is why he requests prn meds when available, b/ c nothing else to do. attending some groups, was asked to leave one gp today b/ c persev on wanting THC. states he wants to leave to smoke THC. Mother Tricia present during interview. States pt was better than last week, able to have better conversation, humor was back, and felt he was perhaps > 50% to baseline. MSE: tall, casually dressed, nml/loud vol speech, incr rate not pressured, mild rocking side to side as standing during interview. mood "pissed off", affect irritable. TP- persev on not needing to be here, wanting THC and Adderall. Likes to have szp, "comforting to hear voices". +AH are "mumbling" and mostly gone, which is very frustrating and upsetting to him b/c likes the "constant company" of +AH and voices talking to him, otherwise feels lonely. No command AH. Denied SI or HI, but added "I had thoughts of killing someone just to get out of this system...2 months versus 30 years, [facility]. I think I have to be patient or I'll be trapped in purgatory (here) forever". Denied current or any specific HI thoughts/plan or intent. States his thought was "to cut off someone' s leg with a samurai sword", but has no sword, plan or intent. Added, "but when in [employer] school I did have thoughts to kill my best friend" by pouring gasoline in room "b/c he was more popular". poor insight/jdgmt. cognition otherwise conversationally intact. Had very fine LUE tremor w/extension, not bothersome. denied feeling internal restlessness. Denied other med s/e, except that the voices are gone and he'd like them back. "I wanna get high, I wanna stay high" PLAN: continue current meds: zyprexa 15 bid, Li 600/900, VPA 2500 + prns Using 6-mg prn Lorazepam daily over past 3 days, monitor for akathisia no SI, reports has had nonspecific HI/harm to others and thoughts as noted above. 03/09/17 16:30 slept 8hr. MSE: incr psychom activity, talkative, incr rate/vol speech but interruptible. more delusional as allowed to elaborate on his responses. mood "fine," affect full, TP/TC- grandiose delusional thoughts, denied current AH but +recent as he describes below. denied VH. Denied HI/SI. i/j-both poor "I've always had voices, I was raised by the Gods. Men have voices, babies don't ". States when clearly audible, AH give him reminders to do things. When AH absent , "I feel alone...the Gods chose me for something, to have fun." Denied any HI or thoughts to harm others, "but sometimes I feel the need to kill the voices" (makes slashing/chopping gestures with both arms into the air) . [place] [address] when heard voice "of the greatest assassin Meli Romero...in [employer], she was an assassin, a shapeshifter..." This AH scared him. States this is why he "destroyed" his father's house which led to most recent admission. "Now I know she's helping me, posing as an injured deer." Talked of never being sent on a mission but rather being the one providing ideas through telecommunication. "I instinctively have the desire to feel manic, with Red Bull, coffee, cigarettes, food, cheese...I'm hard to diagnose because I might seem fine with the meds, but then if I eat a pound of cheese or drink a lot of milk that will interact with my blood levels and make them lower" Then expressed frustration that he was here "because Dr Levi overdosed me on Seroquel and Klonopin" Did mention to [facility] staff that he preferred to take several meds at once for the effect. Pt states his Goal= d/c to [facility], then to transitional living at [facility], then get an apt and job and wean off meds once independent. PLAN: Continue current meds, informed [facility] staff to monitor for any cheeking Pt hoping for eval by [facility] in next day or 2 as per plan by primary team last week, so he can return and continue working through program (but as noted above, with no insight or long-term investment in MH treatment VPA and Li levels 03/11 on [facility] Objective: Vital Signs Temp Pulse Resp BP Pulse Ox 36.6 C 98 18 127/72 H 94 03/08/17 07:50 03/08/17 07:50 03/08/17 07:50 03/08/17 07:50 03/08/17 07:50 - Time Spent With Patient Time Spent With Patient: 35min - Pending Discharge Pending Discharge Within 24 Hours: No Pending Discharge Within 48 Hours: No ICD10 Worksheet Patient Problems: Problems Problem Status Onset Cannabis use disorder, severe, dependence Acute Severe manic bipolar 1 disorder with psychotic behavior Acute Suicidal behavior Acute
[2017-03-10] MEDS: BENZTROPINE MESYLATE 1 MG TAB PO SCH ×5 (08:24→21:30)
[2017-03-10] MEDS: LITHIUM CARBONATE ER 300 MG TAB PO SCH ×3 (08:24→18:20)
[2017-03-10] MEDS: OLANZapine DISINTEGR 5 MG TAB PO SCH ×3 (08:25→21:25)
[2017-03-10] MEDS: metFORMIN HCL 500 MG TAB PO SCH ×4 (08:25→17:45)
[2017-03-10] MEDS: LEVOTHYROXINE 25 MCG TAB PO SCH (09:37)
[2017-03-10] MEDS: LORazepam 1 MG TAB PO PRN ×2 (10:20→17:50)
[2017-03-10] MEDS: HALOPERIDOL 2 MG TAB PO PRN (10:28)
[2017-03-10] MEDS: NICOTINE POLACRILEX 2 MG GUM B PRN (10:29)
[2017-03-10] MEDS: DIVALPROEX ER 500 MG TAB PO SCH (18:20)
--- NOTE | 2017-03-10 20:04 | SOAPPROG ---
SOAP Progress Note Assessment/Plan: Assessment: 22yo CM with BMD manic/psychotic acute, and THC dependence adm from [facility] due to continued shea/psychosis despite recent d/c from another inpt psych hosp , needing longer period of stabilization 03/08/17 14:57 slept 8.5hr reports feeling "bored" and this is why he requests prn meds when available, b/ c nothing else to do. attending some groups, was asked to leave one gp today b/ c persev on wanting THC. states he wants to leave to smoke THC. Mother Tricia present during interview. States pt was better than last week, able to have better conversation, humor was back, and felt he was perhaps > 50% to baseline. MSE: tall, casually dressed, nml/loud vol speech, incr rate not pressured, mild rocking side to side as standing during interview. mood "pissed off", affect irritable. TP- persev on not needing to be here, wanting THC and Adderall. Likes to have szp, "comforting to hear voices". +AH are "mumbling" and mostly gone, which is very frustrating and upsetting to him b/c likes the "constant company" of +AH and voices talking to him, otherwise feels lonely. No command AH. Denied SI or HI, but added "I had thoughts of killing someone just to get out of this system...2 months versus 30 years, [facility]. I think I have to be patient or I'll be trapped in purgatory (here) forever". Denied current or any specific HI thoughts/plan or intent. States his thought was "to cut off someone' s leg with a samurai sword", but has no sword, plan or intent. Added, "but when in [employer] I did have thoughts to kill my best friend" by pouring gasoline in room "b/c he was more popular". poor insight/jdgmt. cognition otherwise conversationally intact. Had very fine LUE tremor w/extension, not bothersome. denied feeling internal restlessness. Denied other med s/e, except that the voices are gone and he'd like them back. "I wanna get high, I wanna stay high" PLAN: continue current meds: zyprexa 15 bid, Li 600/900, VPA 2500 + prns Using 6-mg prn Lorazepam daily over past 3 days, monitor for akathisia no SI, reports has had nonspecific HI/harm to others and thoughts as noted above. 03/09/17 16:30 slept 8hr. MSE: incr psychom activity, talkative, incr rate/vol speech but interruptible. more delusional as allowed to elaborate on his responses. mood "fine," affect full, TP/TC- grandiose delusional thoughts, denied current AH but +recent as he describes below. denied VH. Denied HI/SI. i/j-both poor "I've always had voices, I was raised by the Gods. Men have voices, babies don't ". States when clearly audible, AH give him reminders to do things. When AH absent , "I feel alone...the Gods chose me for something, to have fun." Denied any HI or thoughts to harm others, "but sometimes I feel the need to kill the voices" (makes slashing/chopping gestures with both arms into the air) . [place] [address] way when heard voice "of the greatest assassin Meli Romero...in [employer] of [employer], she was an assassin, a shapeshifter..." This AH scared him. States this is why he "destroyed" his father's house which led to most recent admission. "Now I know she's helping me, posing as an injured deer." Talked of never being sent on a mission but rather being the one providing ideas through telecommunication. "I instinctively have the desire to feel manic, with Red Bull, coffee, cigarettes, food, cheese...I'm hard to diagnose because I might seem fine with the meds, but then if I eat a pound of cheese or drink a lot of milk that will interact with my blood levels and make them lower" Then expressed frustration that he was here "because Dr Levi overdosed me on Seroquel and Klonopin" Did mention [place] [facility] [place] that he preferred to take several meds at once for the effect. Pt states his Goal= d/c to [facility], then to transitional living at [facility], then get an apt and job and wean off meds once independent. PLAN: Continue current meds, informed nsg staff to monitor for any cheeking Pt hoping for eval by [facility] in next day or 2 as per plan by primary team last week, so he can return and continue working through program (but as noted above, with no insight or long-term investment in MH treatment VPA and Li levels 03/11 on [facility] 03/10/17 19:56 slept 7.5hr. apparently has not been following Behav Plan written out to help pt decr overstimulation, tears it up when staff tries to review. was asked to leave group b/c t/a THC awakened for interview around 1pm. missed lunch, said he was sleepy. states he took all of his prns (took Haldol 2mg and Ativan 2mg) this AM b/c felt "too revved" and wanted to be more calm for mtg with staff from [facility] (no one came). refused Cogentin. didn't feel he needed it this AM. Denied AH/VH or other psychotic sxs such as special thomas "but I was on the verge of having them this morning" before prns. mood "bored," affect more controlled, denied SI/HI. did not appear responding to int stim at time of interview. i/j poor. got up to get late lunch after interview. PLAN: cont current meds. refused cogentin and metformin today. wasn't sure he needed them. vpa/Li levels will be checked in AM plan is for pt to be assesed by staff from [facility] sometime this week to eval for return pt on [facility] Objective: Vital Signs Temp Pulse Resp BP Pulse Ox 36.6 C 98 18 127/72 H 94 03/08/17 07:50 03/08/17 07:50 03/08/17 07:50 03/08/17 07:50 03/08/17 07:50 - Time Spent With Patient Time Spent With Patient: 25min - Pending Discharge Pending Discharge Within 24 Hours: No Pending Discharge Within 48 Hours: No ICD10 Worksheet Patient Problems: Problems Problem Status Onset Cannabis use disorder, severe, dependence Acute Severe manic bipolar 1 disorder with psychotic behavior Acute Suicidal behavior Acute
[2017-03-11 06:22] VITALS: BP 118/58; PULSE 86; RESP 14
[2017-03-11 08:49] LABS: LITHIUM 0.6 mEq/L (0.6-1.2)
[2017-03-11] MEDS: LITHIUM CARBONATE ER 300 MG TAB PO SCH ×2 (08:55→21:06)
[2017-03-11] MEDS: OLANZapine DISINTEGR 5 MG TAB PO SCH ×2 (08:55→21:06)
[2017-03-11] MEDS: BENZTROPINE MESYLATE 1 MG TAB PO SCH ×2 (08:56→21:06)
[2017-03-11] MEDS: metFORMIN HCL 500 MG TAB PO SCH ×2 (08:57→16:56)
[2017-03-11] MEDS: NICOTINE POLACRILEX 2 MG GUM B PRN ×2 (08:59→13:08)
[2017-03-11] MEDS: LORazepam 1 MG TAB PO PRN ×2 (09:31→21:35)
[2017-03-11] MEDS: LEVOTHYROXINE 25 MCG TAB PO SCH (11:10)
[2017-03-11] MEDS: DIVALPROEX ER 500 MG TAB PO SCH (21:05)
[2017-03-12] MEDS: metFORMIN HCL 500 MG TAB PO SCH ×2 (08:54→17:42)
[2017-03-12] MEDS: OLANZapine DISINTEGR 5 MG TAB PO SCH ×2 (08:55→21:04)
[2017-03-12] MEDS: BENZTROPINE MESYLATE 1 MG TAB PO SCH ×2 (08:55→21:05)
[2017-03-12] MEDS: LITHIUM CARBONATE ER 300 MG TAB PO SCH ×2 (08:55→21:05)
[2017-03-12] MEDS: LEVOTHYROXINE 25 MCG TAB PO SCH (08:55)
[2017-03-12] MEDS: LORazepam 1 MG TAB PO PRN ×2 (10:33→14:59)
[2017-03-12] MEDS: NICOTINE POLACRILEX 2 MG GUM B PRN (10:33)
--- NOTE | 2017-03-12 17:01 | SOAPPROG ---
SOAP Progress Note Assessment/Plan: Assessment: 22yo CM with BMD manic/psychotic acute, and THC dependence adm from [facility] due to continued shea/psychosis despite recent d/c from another inpt psych hosp , needing longer period of stabilization 03/08/17 14:57 slept 8.5hr reports feeling "bored" and this is why he requests prn meds when available, b/ c nothing else to do. attending some groups, was asked to leave one gp today b/ c persev on wanting THC. states he wants to leave to smoke THC. Mother Tricia present during interview. States pt was better than last week, able to have better conversation, humor was back, and felt he was perhaps > 50% to baseline. MSE: tall, casually dressed, nml/loud vol speech, incr rate not pressured, mild rocking side to side as standing during interview. mood "pissed off", affect irritable. TP- persev on not needing to be here, wanting THC and Adderall. Likes to have szp, "comforting to hear voices". +AH are "mumbling" and mostly gone, which is very frustrating and upsetting to him b/c likes the "constant company" of +AH and voices talking to him, otherwise feels lonely. No command AH. Denied SI or HI, but added "I had thoughts of killing someone just to get out of this system...2 months versus [address] [facility]. I think I have to be patient or I'll be trapped in purgatory (here) forever". Denied current or any specific HI thoughts/plan or intent. States his thought was "to cut off someone' s leg with a samurai sword", but has no sword, plan or intent. Added, "but when in [employer] school I did have thoughts to kill my best friend" by pouring gasoline in room "b/c he was more popular". poor insight/jdgmt. cognition otherwise conversationally intact. Had very fine LUE tremor w/extension, not bothersome. denied feeling internal restlessness. Denied other med s/e, except that the voices are gone and he'd like them back. "I wanna get high, I wanna stay high" PLAN: continue current meds: zyprexa 15 bid, Li 600/900, VPA 2500 + prns Using 6-mg prn Lorazepam daily over past 3 days, monitor for akathisia no SI, reports has had nonspecific HI/harm to others and thoughts as noted above. 03/09/17 16:30 slept 8hr. MSE: incr psychom activity, talkative, incr rate/vol speech but interruptible. more delusional as allowed to elaborate on his responses. mood "fine," affect full, TP/TC- grandiose delusional thoughts, denied current AH but +recent as he describes below. denied VH. Denied HI/SI. i/j-both poor "I've always had voices, I was raised by the Gods. Men have voices, babies don't ". States when clearly audible, AH give him reminders to do things. When AH absent , "I feel alone...the Gods chose me for something, to have fun." Denied any HI or thoughts to harm others, "but sometimes I feel the need to kill the voices" (makes slashing/chopping gestures with both arms into the air) . [place] [address] way when heard voice "of the greatest assassin Meli Romero...in Game of [employer], she was an assassin, a shapeshifter..." This AH scared him. States this is why he "destroyed" his father's house which led to most recent admission. "Now I know she's helping me, posing as an injured deer." Talked of never being sent on a mission but rather being the one providing ideas through telecommunication. "I instinctively have the desire to feel manic, with Red Bull, coffee, cigarettes, food, cheese...I'm hard to diagnose because I might seem fine with the meds, but then if I eat a pound of cheese or drink a lot of milk that will interact with my blood levels and make them lower" Then expressed frustration that he was here "because Dr Levi overdosed me on Seroquel and Klonopin" Did mention to [facility] staff that he preferred to take several meds at once for the effect. Pt states his Goal= d/c to [facility], then to transitional living at [facility], then get an apt and job and wean off meds once independent. PLAN: Continue current meds, informed [facility] staff to monitor for any cheeking Pt hoping for eval by [facility] in next day or 2 as per plan by primary team last week, so he can return and continue working through program (but as noted above, with no insight or long-term investment in MH treatment VPA and Li levels 8/ on [facility] 03/10/17 19:56 slept 7.5hr. apparently has not been following Behav Plan written out to help pt decr overstimulation, tears it up when staff tries to review. was asked to leave group b/c t/a THC awakened for interview around 1pm. missed lunch, said he was sleepy. states he took all of his prns (took Haldol 2mg and Ativan 2mg) this AM b/c felt "too revved" and wanted to be more calm for mtg with staff from [facility] (no one came). refused Cogentin. didn't feel he needed it this AM. Denied AH/VH or other psychotic sxs such as special thomas "but I was on the verge of having them this morning" before prns. mood "bored," affect more controlled, denied SI/HI. did not appear responding to int stim at time of interview. i/j poor. got up to get late lunch after interview. PLAN: cont current meds. refused cogentin and metformin today. wasn't sure he needed them. vpa/Li levels will be checked in AM plan is for pt to be assesed by staff from [facility] sometime this week to [facility] for return pt on [facility] 03/11/17 14:56 late entry slept 10hr. med compliant pt hoped he could return to [facility] soon. talked about recently being inpatient 50days in last 8 months "no idea why", altho then did state he was "manic". later stated "drugs are why I'm here, I threw my meds out". however then admits he will do so again when independent and not having supervised meds. denied any SI/HI. denied any AH or VH, "but I was a telepath once". made some delusional statements but remained in behav control, w/good eye contact, nml speech rate/vol. c/o being bored but attending groups and socializing w/ peers. i/j both poor. PLAN: seems gradually improving as continuing with longer time on current meds, and with continued unit structure. on [facility] Objective: Vital Signs Temp Pulse Resp BP Pulse Ox 36.6 C 86 14 118/58 L 94 03/08/17 07:50 03/11/17 06:00 03/11/17 06:00 03/11/17 06:00 03/11/17 06:00 - Time Spent With Patient Time Spent With Patient: 25min - Pending Discharge Pending Discharge Within 24 Hours: No Pending Discharge Within 48 Hours: No ICD10 Worksheet Patient Problems: Problems Problem Status Onset Cannabis use disorder, severe, dependence Acute Severe manic bipolar 1 disorder with psychotic behavior Acute Suicidal behavior Acute
--- NOTE | 2017-03-12 17:32 | SOAPPROG ---
SOAP Progress Note Assessment/Plan: Assessment: 22yo CM with BMD manic/psychotic acute, and THC dependence adm from [facility] due to continued shea/psychosis despite recent d/c from another inpt psych hosp , needing longer period of stabilization 03/08/17 14:57 slept 8.5hr reports feeling "bored" and this is why he requests prn meds when available, b/ c nothing else to do. attending some groups, was asked to leave one gp today b/ c persev on wanting THC. states he wants to leave to smoke THC. Mother Tricia present during interview. States pt was better than last week, able to have better conversation, humor was back, and felt he was perhaps > 50% to baseline. MSE: tall, casually dressed, nml/loud vol speech, incr rate not pressured, mild rocking side to side as standing during interview. mood "pissed off", affect irritable. TP- persev on not needing to be here, wanting THC and Adderall. Likes to have szp, "comforting to hear voices". +AH are "mumbling" and mostly gone, which is very frustrating and upsetting to him b/c likes the "constant company" of +AH and voices talking to him, otherwise feels lonely. No command AH. Denied SI or HI, but added "I had thoughts of killing someone just to get out of this system...2 months versus 30 years, [facility]. I think I have to be patient or I'll be trapped in purgatory (here) forever". Denied current or any specific HI thoughts/plan or intent. States his thought was "to cut off someone' s leg with a samurai sword", but has no sword, plan or intent. Added, "but when in [employer] school I did have thoughts to kill my best friend" by pouring gasoline in room "b/c he was more popular". poor insight/jdgmt. cognition otherwise conversationally intact. Had very fine LUE tremor w/extension, not bothersome. denied feeling internal restlessness. Denied other med s/e, except that the voices are gone and he'd like them back. "I wanna get high, I wanna stay high" PLAN: continue current meds: zyprexa 15 bid, Li 600/900, VPA 2500 + prns Using 6-mg prn Lorazepam daily over past 3 days, monitor for akathisia no SI, reports has had nonspecific HI/harm to others and thoughts as noted above. 03/09/17 16:30 slept 8hr. MSE: incr psychom activity, talkative, incr rate/vol speech but interruptible. more delusional as allowed to elaborate on his responses. mood "fine," affect full, TP/TC- grandiose delusional thoughts, denied current AH but +recent as he describes below. denied VH. Denied HI/SI. i/j-both poor "I've always had voices, I was raised by the Gods. Men have voices, babies don't ". States when clearly audible, AH give him reminders to do things. When AH absent , "I feel alone...the Gods chose me for something, to have fun." Denied any HI or thoughts to harm others, "but sometimes I feel the need to kill the voices" (makes slashing/chopping gestures with both arms into the air) . [place] [address] way when heard voice "of the greatest assassin Meli Romero...in Game of [employer], she was an assassin, a shapeshifter..." This AH scared him. States this is why he "destroyed" his father's house which led to most recent admission. "Now I know she's helping me, posing as an injured deer." Talked of never being sent on a mission but rather being the one providing ideas through telecommunication. "I instinctively have the desire to feel manic, with Red Bull, coffee, cigarettes, food, cheese...I'm hard to diagnose because I might seem fine with the meds, but then if I eat a pound of cheese or drink a lot of milk that will interact with my blood levels and make them lower" Then expressed frustration that he was here "because Dr Levi overdosed me on Seroquel and Klonopin" Did mention to [facility] staff that he preferred to take several meds at once for the effect. Pt states his Goal= d/c to [facility], then to transitional living at [facility], then get an apt and job and wean off meds once independent. PLAN: Continue current meds, informed [facility] staff to monitor for any cheeking Pt hoping for eval by [facility] in next day or 2 as per plan by primary team last week, so he can return and continue working through program (but as noted above, with no insight or long-term investment in MH treatment VPA and Li levels 8/ on [facility] 03/10/17 19:56 slept 7.5hr. apparently has not been following Behav Plan written out to help pt decr overstimulation, tears it up when staff tries to review. was asked to leave group b/c t/a THC awakened for interview around 1pm. missed lunch, said he was sleepy. states he took all of his prns (took Haldol 2mg and Ativan 2mg) this AM b/c felt "too revved" and wanted to be more calm for mtg with staff from [facility] (no one came). refused Cogentin. didn't feel he needed it this AM. Denied AH/VH or other psychotic sxs such as special thomas "but I was on the verge of having them this morning" before prns. mood "bored," affect more controlled, denied SI/HI. did not appear responding to int stim at time of interview. i/j poor. got up to get late lunch after interview. PLAN: cont current meds. refused cogentin and metformin today. wasn't sure he needed them. vpa/Li levels will be checked in AM plan is for pt to be assesed by staff from [facility] sometime this week to [facility] for return pt on [facility] 03/11/17 14:56 late entry slept 10hr. med compliant pt hoped he could return to [facility] soon. talked about recently being inpatient 50days in last 8 months "no idea why", altho then did state he was "manic". later stated "drugs are why I'm here, I threw my meds out". however then admits he will do so again when independent and not having supervised meds. denied any SI/HI. denied any AH or VH, "but I was a telepath once". made some delusional statements but remained in behav control, w/good eye contact, nml speech rate/vol. c/o being bored but attending groups and socializing w/ peers. i/j both poor. PLAN: seems gradually improving as continuing with longer time on current meds, and with continued unit structure. on [facility] 03/12/17 17:12 per staff: slept 7hr. atteding gps. states goal was to someday get off meds b/c friends are better than meds. On interview, pt was cooperative, calm, in bx control and with good eye contact. nml speech vol/rate, nml PMA but w slight bouncing of legs. denied urges to move or pace. casually dressed, mood "good", affect controlled and somewhat restricted. TP/TC- linear for periods of time then seems to randomly interject delusional statements: "there's a spider in my body, my body will be replaced in 5 days, and the spider will teleport to my new body" and also "the aliens will protect us". denied any AH/VH, "your medicines made them go away". did not appear responding to internal stimuli. denied any SI/HI, altho adds " but if the bad voices come to me, I will slash them (the voices)". i/j both poor but seem slightly improved as expresses some insight into hearing voices having related to drug use. cognition conversationally intact. took prn Haldol once yesterday and prn Ativan this am. the latter "b/c I'm bored , it was something to do". and regarding Haldol: "I love it...it makes me a Level 1, I take it to lobotomize me...I don't cling to power". states all this in calm, [id number] tone. Doesn't want any IM meds, b/c states Invega IM gave him a stroke and Haldol "hurts" as IM. admits to hx of feigning med compliance if allowed to monitor own meds. but reports compliant here and plans to continue on meds after d/c to [facility]. just would taper off when has full independence someday. states he has hx of Adderall use "but that ruined my reward system...I potentiated it with DXM, that's dextromethorphan, and it tripled the effect...but I quit in 2012 b/c I was psychotic, the Gods started talking to me. " (most insightful comment made to MD over last several days!) PLAN: cont meds, VPA and Li therapeutic range. compliant now and felt by inpt to be stable for d/c to [facility] whose staff visited yesterday but haven't provided return to date. pt expresses that he is not invested in med compliance when in unstructured setting at this time. would likely need c.o. meds and IM for longer-term compliance but presently stable for return to lesser structured setting. is seeming to express very slightly more insight. Objective: Vital Signs Temp Pulse Resp BP Pulse Ox 36.6 C 86 14 118/58 L 94 03/08/17 07:50 03/11/17 06:00 03/11/17 06:00 03/11/17 06:00 03/11/17 06:00 Medications Generic Name Dose Route Start Last Admin Trade Name Freq PRN Reason Stop Dose Admin Nicotine Polacrilex 2 mg 03/04/17 02:24 03/08/17 10:23 Nicorette B 08/31/17 02:23 2 mg Q1HR PRN Nicotine Withdrawal Olanzapine 15 mg 03/04/17 21:00 03/08/17 08:35 Zyprexa Zydis PO 08/31/17 20:59 15 mg BID CADEN Metformin HCl 500 mg 03/04/17 18:00 03/08/17 08:36 Glucophage PO 08/31/17 17:59 500 mg BIDMEAL CADEN Haloperidol 2 mg 03/04/17 12:26 03/08/17 07:23 Haldol PO 08/31/17 12:25 2 mg Q4HRS PRN Agitation Benztropine Mesylate 1 mg 03/04/17 21:00 03/08/17 08:36 Cogentin PO 08/31/17 20:59 1 mg BID CADEN Levothyroxine Sodium 50 mcg 03/05/17 10:00 03/08/17 09:30 Synthroid PO 09/01/17 09:59 50 mcg DAILY10 CADEN Lorazepam 2 mg 03/04/17 12:23 03/08/17 07:23 Ativan PO 08/31/17 12:22 2 mg Q4HRS PRN Anxiety, Able to Take PO Divalproex Sodium 2,500 mg 03/05/17 18:23 03/07/17 19:55 Depakote Er PO 08/31/17 20:59 2,500 mg HS CADEN [place] Carbonate 900 mg 03/05/17 21:00 03/07/17 19:55 Lithobid PO 09/01/17 20:59 900 mg HS CADEN [place] Carbonate 600 mg 03/06/17 09:00 03/08/17 08:35 Lithobid PO 09/02/17 08:59 600 mg DAILY CADEN Diphenhydramine HCl 50 mg 03/05/17 18:30 03/08/17 10:40 Benadryl PO 09/01/17 18:29 50 mg Q4HRS PRN Agitation Laboratory Tests 03/05/17 03/11/17 16:35 06:10 TSH 4.050 Valproic Acid 84.3 [place] 0.6 - Pending Discharge Pending Discharge Within 24 Hours: No Pending Discharge Within 48 Hours: No ICD10 Worksheet Patient Problems: Problems Problem Status Onset Cannabis use disorder, severe, dependence Acute Severe manic bipolar 1 disorder with psychotic behavior Acute Suicidal behavior Acute
[2017-03-12] MEDS: DIVALPROEX ER 500 MG TAB PO SCH (21:05)
[2017-03-13] MEDS: LEVOTHYROXINE 25 MCG TAB PO SCH (08:53)
[2017-03-13] MEDS: OLANZapine DISINTEGR 5 MG TAB PO SCH ×2 (08:54→20:08)
[2017-03-13] MEDS: LITHIUM CARBONATE ER 300 MG TAB PO SCH ×2 (08:54→20:09)
[2017-03-13] MEDS: BENZTROPINE MESYLATE 1 MG TAB PO SCH ×2 (08:55→20:09)
[2017-03-13] MEDS: metFORMIN HCL 500 MG TAB PO SCH ×2 (08:56→16:53)
[2017-03-13] MEDS: HALOPERIDOL 2 MG TAB PO PRN ×2 (10:29→15:14)
[2017-03-13] MEDS: LORazepam 1 MG TAB PO PRN ×2 (10:29→15:14)
--- NOTE | 2017-03-13 15:44 | SOAPPROG ---
SOAP Progress Note Assessment/Plan: Assessment: Patient with bipolar disorder with recent shea and psychosis presenting with linear and logical thought process. He made no psychotic statements about aliens or teleporting. He was able to give an insight explanation as to what lead to his removal from [facility] and hospitalization. He feels ready to return to [facility]. He was noted to be jumping vertically in the hallway earlier in the day. Plan: Will continue current medications and treatment. 03/13/17 15:44 03/14/17 16:30 Subjective: He reports he is "doing good." He states he went manic on Klonopin and Seroquel , blacked out, and can't remember much. He reports he was being belligerent at [facility]. Here, he reports being bored and looking forward to going back to [facility]. He denies problems with the medications he is currently taking. Objective: Vital Signs Temp Pulse Resp BP Pulse Ox 36.6 C 86 14 118/58 L 94 03/08/17 07:50 03/11/17 06:00 03/11/17 06:00 03/11/17 06:00 03/11/17 06:00 Tall, male, neatly dressed, sitting on his bed with his legs crossed. Friendly and cooperative. Good eye contact. Speech- RRR and tone. Mood- "Good. " Affect- Euthymic and full. Thought Process- linear and goal directed. Thought Contact - No SI/HI. No AH/VH. No delusional statements made. No responding to internal stimuli. - Time Spent With Patient Time Spent With Patient: 25 - Pending Discharge Pending Discharge Within 24 Hours: No Pending Discharge Within 48 Hours: No ICD10 Worksheet Patient Problems: Problems Problem Status Onset Cannabis use disorder, severe, dependence Acute Severe manic bipolar 1 disorder with psychotic behavior Acute Suicidal behavior Acute
[2017-03-13] MEDS: DIVALPROEX ER 500 MG TAB PO SCH (20:08)
[2017-03-14] MEDS: BENZTROPINE MESYLATE 1 MG TAB PO SCH ×2 (08:37→21:28)
[2017-03-14] MEDS: metFORMIN HCL 500 MG TAB PO SCH ×2 (08:37→18:35)
[2017-03-14] MEDS: LITHIUM CARBONATE ER 300 MG TAB PO SCH ×2 (08:38→21:28)
[2017-03-14] MEDS: OLANZapine DISINTEGR 5 MG TAB PO SCH ×2 (08:38→21:29)
[2017-03-14] MEDS: LEVOTHYROXINE 25 MCG TAB PO SCH (09:59)
[2017-03-14] MEDS: LORazepam 1 MG TAB PO PRN (13:27)
[2017-03-14] MEDS: HALOPERIDOL 2 MG TAB PO PRN (13:27)
[2017-03-14] MEDS: NICOTINE POLACRILEX 2 MG GUM B PRN (14:17)
--- NOTE | 2017-03-14 16:29 | SOAPPROG ---
SOAP Progress Note Assessment/Plan: Assessment: Patient with bipolar disorder with recent shea and psychosis presenting with linear and logical thought process. He made no psychotic statements about aliens or teleporting. He was able to give an insight explanation as to what lead to his removal from [facility] and hospitalization. He feels ready to return to [facility]. He was not noted to be jumping vertically today. Plan: Will continue current medications and treatment. 03/13/17 15:44 03/14/17 16:28 03/14/17 16:29 Subjective: He reports he is doing well. He continues to await his return to [facility]. He reports being told someone from [facility] would be coming to see him today. Objective: Vital Signs Temp Pulse Resp BP Pulse Ox 36.6 C 86 14 118/58 L 94 03/08/17 07:50 03/11/17 06:00 03/11/17 06:00 03/11/17 06:00 03/11/17 06:00 Tall, male pacing the ash. Casually dressed. Good eye contact. Speech - RRR and tone. Mood- "Fine." Affect- Euthymic. Thought Process linear and goal directed. Thought Content - No SI/HI. No AH/VH, No delusional statement made. - Time Spent With Patient Time Spent With Patient: 15 - Pending Discharge Pending Discharge Within 24 Hours: No Pending Discharge Within 48 Hours: No ICD10 Worksheet Patient Problems: Problems Problem Status Onset Cannabis use disorder, severe, dependence Acute Severe manic bipolar 1 disorder with psychotic behavior Acute Suicidal behavior Acute
[2017-03-14] MEDS: DIVALPROEX ER 500 MG TAB PO SCH (21:28)
[2017-03-15] MEDS: BENZTROPINE MESYLATE 1 MG TAB PO SCH ×2 (09:32→20:34)
[2017-03-15] MEDS: OLANZapine DISINTEGR 5 MG TAB PO SCH ×2 (09:37→20:35)
[2017-03-15] MEDS: metFORMIN HCL 500 MG TAB PO SCH ×2 (09:37→17:46)
[2017-03-15] MEDS: LITHIUM CARBONATE ER 300 MG TAB PO SCH ×2 (09:39→20:35)
[2017-03-15] MEDS: LEVOTHYROXINE 25 MCG TAB PO SCH (09:40)
[2017-03-15] MEDS: LORazepam 1 MG TAB PO PRN ×2 (10:10→21:46)
[2017-03-15] MEDS: HALOPERIDOL 2 MG TAB PO PRN (10:10)
[2017-03-15] MEDS: NICOTINE POLACRILEX 2 MG GUM B PRN ×2 (11:09→20:08)
--- NOTE | 2017-03-15 14:07 | SOAPPROG ---
SOAP Progress Note Assessment/Plan: Assessment: Patient with bipolar disorder with recent shea and psychosis presenting with linear and logical thought process. He made no psychotic statements about aliens or teleporting. He was able to give an insight explanation as to what lead to his removal from [facility] and hospitalization. He feels ready to return to [facility]. He was not noted to be jumping vertically today. He was running in the ash with a peer earlier today. Plan: Will continue current medications and treatment. 03/13/17 15:44 03/14/17 16:28 03/14/17 16:29 03/15/17 14:02 Subjective: He reports he is really sleepy. He states he took Ativan and Haldol earlier, so he could sleep Objective: Vital Signs Temp Pulse Resp BP Pulse Ox 36.6 C 86 14 118/58 L 94 03/08/17 07:50 03/11/17 06:00 03/11/17 06:00 03/11/17 06:00 03/11/17 06:00 Tall, male, lying in bed, barely able to keep his eyes open. Speech slurred. Mood- "Okay. Affect- sleepy. Thought Process- unable to assess. Thought Content - Unable to assess. - Pending Discharge Pending Discharge Within 24 Hours: No ICD10 Worksheet Patient Problems: Problems Problem Status Onset Cannabis use disorder, severe, dependence Acute Severe manic bipolar 1 disorder with psychotic behavior Acute Suicidal behavior Acute
[2017-03-15] MEDS: DIVALPROEX ER 500 MG TAB PO SCH (20:35)
[2017-03-16] MEDS: OLANZapine DISINTEGR 5 MG TAB PO SCH ×2 (09:26→20:33)
[2017-03-16] MEDS: BENZTROPINE MESYLATE 1 MG TAB PO SCH ×2 (09:26→20:31)
[2017-03-16] MEDS: metFORMIN HCL 500 MG TAB PO SCH ×2 (09:26→18:30)
[2017-03-16] MEDS: LITHIUM CARBONATE ER 300 MG TAB PO SCH ×2 (09:26→20:32)
[2017-03-16] MEDS: LORazepam 1 MG TAB PO PRN (10:00)
[2017-03-16] MEDS: NICOTINE POLACRILEX 2 MG GUM B PRN (10:55)
[2017-03-16] MEDS: LEVOTHYROXINE 25 MCG TAB PO SCH (11:16)
--- NOTE | 2017-03-16 15:52 | SOAPPROG ---
SOAP Progress Note Assessment/Plan: Assessment: Patient with bipolar disorder with recent shea and psychosis presenting with linear and logical thought process. He made no psychotic statements about aliens or teleporting. He was able to give an insight explanation as to what lead to his removal from [facility] and hospitalization. He feels ready to return to [facility]. He was not noted to be jumping vertically today. He was not running in the ash with a peer today. Plan: Will continue current medications and treatment. 03/13/17 15:44 03/14/17 16:28 03/14/17 16:29 03/15/17 14:02 03/16/17 15:48 Subjective: He reports being bored. He denies SI/HI. His appetite and BM are wnl. He denies depression. He wants to smoke and talk to people back at [facility]. Objective: Vital Signs Temp Pulse Resp BP Pulse Ox 36.6 C 86 14 118/58 L 94 03/08/17 07:50 03/11/17 06:00 03/11/17 06:00 03/11/17 06:00 03/11/17 06:00 Tall, male sitting with his legs crossed on his bed. Calm and cooperative. Good eye contact. Mood- "I'm bored." Affect- Euthymic. Thought Process- linear and and goal directed. Thought Content - No SI/HI. No AH/VH. - Time Spent With Patient Time Spent With Patient: 15 ICD10 Worksheet Patient Problems: Problems Problem Status Onset Cannabis use disorder, severe, dependence Acute Severe manic bipolar 1 disorder with psychotic behavior Acute Suicidal behavior Acute
[2017-03-16] MEDS: DIVALPROEX ER 500 MG TAB PO SCH (20:32)
[2017-03-17] MEDS: metFORMIN HCL 500 MG TAB PO SCH ×2 (08:15→18:32)
[2017-03-17] MEDS: OLANZapine DISINTEGR 5 MG TAB PO SCH ×2 (08:16→20:34)
[2017-03-17] MEDS: LITHIUM CARBONATE ER 300 MG TAB PO SCH ×2 (08:16→20:33)
[2017-03-17] MEDS: BENZTROPINE MESYLATE 1 MG TAB PO SCH ×2 (08:16→20:35)
[2017-03-17] MEDS: LEVOTHYROXINE 25 MCG TAB PO SCH (10:02)
[2017-03-17] MEDS: LORazepam 1 MG TAB PO PRN (10:50)
[2017-03-17] MEDS ORDERED: LORazepam 1 MG TAB PO PRN (13:27)
--- NOTE | 2017-03-17 13:31 | SOAPPROG ---
SOAP Progress Note Assessment/Plan: Assessment: 03/05/17 12:34 Plan: 1. Reviewed extensive records from [facility] as well as more recent records from [facility]. Patient was placed on STC by Anjum Brewster MD at [facility] on 02/07/17. The STC was transferred to "[facility]" on 02/25/17. At the time of d/c from [facility], the treating psych MD noted that patient was still experiencing AH/VH, paranoia, delusions, acting aggressively and impulsively and showed little benefit from treatment after more than 2 weeks inpatient. According to this report, patient was clearly not stable at time of discharge. Records from [facility] indicate that despite significant increased doses and addition of medications, his presentation was pretty much the same during his stay at [facility]. Given that his current admission represents his 4th admission to psych facility in 2 months, it seems patient requires much longer time to stabilize that he has been allowed in recent hospitalizations. His current presentation is exactly similar to his presentation at [facility], [facility] and [facility]. 2. CCM for now and give more time to stabilize. 3. MD left another voicemail for Dr. Levi with an update on patient's condition. 4. Patient continues to take meds voluntarily, e-meds will today. There has been no recurrence of verbal threats or posturing. 03/06/17 12:15 Plan: 1. Psych MD was contacted by unit staff last night who reported patient was making statements that he would "hurt" peers, but did not identify anyone in particularly. Staff reported patient was very agitated and constantly asking for PRN meds. Staff were eventually able to de-escalate patient and overnight RN , Surya, stated patient was much calmer and more cooperative after a visit with his FOC. 2. MD increased Depakote ER to 2,500 QHS last night. 3. [place] increased to 600mg QAM and 900 QHS 4. Benadryl 50mg Q4h PRN for agitation 5. Patient still has Haldol 2mg q4h PRN for agitation/psychosis as well as Ativan 2mg Q4h PRN for agitation NTE TDD 10mg. 6. MD corresponded by text with Dr. Levi who stated he would like patient to return to [facility] when he is more stable. Dr. Levi is going on vacation starting 03/06/[address] Marci Paez will be covering for him. 03/07/17 14:01 Plan: 1. Maintain current doses of Depakote, [place] and Zyprexa. 2. Will need repeat VPA level on 03/11/17 (give HS dose early prior to blood draw) . 3. Will need repeat lithium level on 03/11/17 (give HS dose early prior to blood draw). 4. Will decrease Haldol PRN to q6hrs. Continue with Ativan PRN as benzos will be most helpful to treat shea. 5. Have requested that Dr. Paez or therapist from [facility] meet with Arnoldo on 03/10/17 to evaluate for transfer back to [facility] on Friday or Friday if possible. 03/17/17 13:28 Plan: 1. Resuming care of patient after vacation. He is still on same doses of medications. CCM. 2. D/C Haldol since he has only had one PRN dose in past 5 days. 3. Decrease Ativan PRN to 1mg Q4h. He has only needed one dose in past 5 days. 4. VPA level on 03/11/17 was 84.3 5. Li level on 03/11/17 was 0.6 6. Will leave it up to treating psych MD at [facility] to titrate VPA and [place] further if needed. Patient is currently stable and has no shea sxs or psychotic sxs. 7. spoke with Hiral at [facility]. She informed that Dr. Paez is not working today, however, on Friday, Dr. Paez said she planned to re-admit patient back to [facility] on 03/18/17. Subjective: Met with patient and discussed with staff. Patient presents as calm, walking slowly in ash, pleasant. He remembered MD's name from a week ago. MD explained the plan to transfer patient back to [facility] most likely tomorrow. He agreed with this plan and said he thought it was "good." He denies any AH/VH, paranoia, delusions, and has no thoughts, plan or intent to hurt himself or anyone else. Objective: Vital Signs Temp Pulse Resp BP Pulse Ox 36.6 C 86 14 118/58 L 94 03/08/17 07:50 03/11/17 06:00 03/11/17 06:00 03/11/17 06:00 03/11/17 06:00 MSE: Tall, wearing fleece pullover and scrub pants. Affect: Euthymic Mood: "OK: TP: Linear, goal-directed TC: Denies any AH/VH, no evidence of paranoia or delusions, no SI/HI Insight/Judgment: Improved - Time Spent With Patient Time Spent With Patient: 25" - Pending Discharge Pending Discharge Within 24 Hours: Yes Pending Discharge Date: 03/18/17 Pending Discharge Time: 12:00 ICD10 Worksheet Patient Problems: Problems Problem Status Onset Cannabis use disorder, severe, dependence Acute Severe manic bipolar 1 disorder with psychotic behavior Acute Suicidal behavior Acute - ICD10 Problem Qualifiers (1) Severe manic bipolar 1 disorder with psychotic behavior (2) Cannabis use disorder, severe, dependence
[2017-03-17] MEDS: NICOTINE POLACRILEX 2 MG GUM B PRN ×3 (15:54→20:25)
[2017-03-17] MEDS: DIVALPROEX ER 500 MG TAB PO SCH (20:35)
[2017-03-18] MEDS: OLANZapine DISINTEGR 5 MG TAB PO SCH (08:29)
[2017-03-18] MEDS: metFORMIN HCL 500 MG TAB PO SCH (08:29)
[2017-03-18] MEDS: LITHIUM CARBONATE ER 300 MG TAB PO SCH (08:30)
[2017-03-18] MEDS: BENZTROPINE MESYLATE 1 MG TAB PO SCH (08:30)
[2017-03-18] MEDS: LEVOTHYROXINE 25 MCG TAB PO SCH (08:32)
--- NOTE | 2017-03-18 12:46 | BDS ---
[f rep st] BEHAVIORAL HEALTH DISCHARGE SUMMARY REASON FOR ADMISSION: This is a 22-year-old, single, man who was brought to the [facility] ED on an M1 hold initiated by his psychiatrist, Dr. Levi at [facility]. Per the M1 hold, the patient was unable to follow directions from staff. He has been posturing with the nurse in an aggr essive manner. He had left lit cigarettes around [facility] where he was residing and making inap propriate requests for meds. He has touched several other clients without permission. He is gravel y disabled at this time. Also noted in the ED note from the physician, the patient has made a state ment that he should go to prison and he is Michael Kamron. Per records, the patient has been previously diagnosed with bipolar disorder, alcohol and marijuana use disorder. The patient was discharged fr [facility] in [place] on 02/25/2017, and admitted [facility] at [facility] on 02/25. The patient had been admitted to [facility] from 02/04/2017 to 02/25/2017 due to shea w ith psychosis. The patient has been hospitalized for psychiatric treatment 4 times in the last 10 [facility]. Per report, the patient decompensated since his discharge from [facility] on 01/22/2017. On 02/15/2017, the patient had a syncopal episode at the back of his head. He was on the medical floor for 3 days with arrhythmia and severe bradycardia, thought to be due to Invega. ADMITTING DIAGNOSES: 1. Bipolar disorder type 1, most recent episode manic with psychotic features. 2. Cannabis use disorder, severe. 3. Alcohol use disorder, severe. 4. Amphetamine use disorder, in remission. 5. Stimulant use disorder, in remission. 6. Opioid use disorder, in remission. 7. Cocaine use disorder, in remission. 8. Hallucinogen use disorder, in remission. 9. Psychosocial stressors include multiple recent hospitalizations, dropping out of college, financ ially supported by his parents, unemployed, lack of social support, difficulty with interpersonal re lationships, and long-term recovery from substance use. Recent onset of severe mental illness. ADMISSION PHYSICAL EXAMINATION: Performed by Dr. Michael Waldron. Please see his H and P for [facility] er details. ADMISSION LABS: As follows: White cell count was 7.3, hemoglobin was 14.2, hematocrit was 48.7, pl atelet count was 234, sodium was 142, potassium was 4.5, BUN was 14, creatinine was 0.8, total bilir ubin was 0.3, AST was 23, ALT was 26, alkaline phosphatase was 62, total protein was 6.2, albumin of 2.7, TSH was 4.05. Urine tox screen was negative for all drugs of abuse. Blood alcohol level was less than 10. His li thium level on 03/04/2017 was 0.5. HOSPITAL COURSE: The patient was admitted to Inpatient Behavioral Services Unit on an M1 hold. On 03/05/2017, reviewed extensive records from [facility], as well as more recent records from [facility]. The patient was placed on a short-term cert by Anjum Brewster at [facility] on 02/07/2017. The short-term cert [facility] to [facility] on 02/25/2017. At the time of discharge from [facility], the treating psychiatrist not ed that the patient was still experiencing auditory and visual hallucinations, paranoia, delusions, acting aggressively impulsively, and showed little benefit from treatment after more than 2 weeks of inpatient. According to this report, the patient was clearly not stable at time of discharge. Rec ords from [facility] indicate that despite significant increase doses and addition of medications, his presentation was pretty much the same during his stay at [facility]. Given that his cur rent admission represents his 4th admission to a psych facility in 2 months, it seems that the patie nt requires a much longer time to stabilize than he has been allowed in recent hospitalization. His current presentation upon admission to [facility] is very similar to his presentation at [facility], [facility], and [facility] in the last several months. Upon admission, MD left a voice mail message for Dr. Levi with an update on the patient's condition, and later was able to communicate with Dr. Levi about possible titration of medications, which had begun at [facility]. On his 1st day of admission, the patient was threatening and posturing aggressively towar d staff, and he was in seclusion. He was given E-meds for the first 24 hours of admission. E-meds were prescribed for him during the first 24 hours of admission. However, the patient took his medic ations voluntarily. As treating MD on the Behavioral Health Unit, it was decided to treat his shea more aggressively by titrating his Depakote, as well as his lithium levels. The patient was admitt ed on Zyprexa 20 mg p.o. b.i.d., but it was decided that since he was acutely manic that there would be more benefit to increasing doses of his mood stabilizers rather than the 2nd generation atypical antipsychotic, which even though it was being used as a mood stabilizer, is in general less affecti ve for shea for adult patients with bipolar disorder than are the first-line treatments of choice w ith Depakote and lithium. Therefore, on 03/06/2017, MD increased Depakote ER to 2,500 q.h.s., and l ithium was increased from 600 mg p.o. b.i.d. to 600 mg p.o. q.a.m., and 900 mg p.o. q.h.s. It was d ecided to use a first generation neuroleptic instead of adding additional doses of Zyprexa to help m anage the patient's agitation for 2 reasons: One was because he was already at the max daily total dose of Zyprexa, and also because Haldol is in general a more affective medication for patients with agitation secondary to psychosis that are some of the 2nd generational generation atypicals. So, t he patient was ordered Haldol 2 mg p.o. q.4 hours p.r.n., as well as Ativan 2 mg q.4 hours p.r.n. fo r agitation, not to exceed a total daily dose of 10 mg. His Zyprexa dose was lowered from 20 mg p.o . b.i.d. daily to 15 mg p.o. b.i.d. On 03/07/2017, admitting psychiatrist transferred care of the p atient because he was on vacation, and the recommendation was to follow up in 5 days to get the Depa kote levels, as well as lithium levels once the patient had been on these new doses, and it was bertha mmended to maintain him on his current doses, as long as he was showing signs and symptoms of improv ement, which turned out the patient did well on those increased doses of mood stabilizers, and was a ble to maintain, although he did get p.r.n. doses of Ativan, which were beneficial both for his hussein a, as well as for his anxiety and agitation. The patient's repeat blood levels, VPA level on 03/11 was 84.3, and lithium level was 0.6. On 03/17/2017, this psychiatrist resumed care of patient after vacation. He was still on the same doses of his medications. MD decided to discontinue Haldol, si nce the patient had not used any p.r.n. doses of Haldol, or had only used 1 p.r.n. dose of Haldol in the 5 days prior, and that he had only used 1 dose of Ativan 1 mg p.r.n. in the prior 5 days. Both of those medications were discontinued on 03/17/2017, and MD noted that it would be up to the treat ing psychiatrist at [facility] to titrate the Depakote and lithium further if needed. Jalen weems, the patient is currently stable, and is not exhibiting any signs or symptoms of shea, and there is no evidence of psychosis. The patient presented on 03/17/2017 as calm, walking slowly in the pauline l, pleasant. He remember the MD's name from his admission a week ago. The patient denied any audit ory or visual hallucinations. Denied paranoid, delusions, and has not no thoughts, plans, or intent s to hurt himself or anyone else. The patient had been seen and evaluated by staff from [facility] on 03/14/2017, and at that time they felt that the patient was stable, and [facility]. MD attempted to contact Dr. Paez, who will be the [facility] physician on Friday03/17/2017, but she was not available. Staff reported that she had left wo rd that she would be willing to accept the patient back on Friday03/18/2017. CONDITION ON DISCHARGE: The patient is stable. He is euthymic. He is much calmer, more pleasant, more linear and coherent than on admission, showing no signs or symptoms of shea or psychosis at e current time. DISCHARGE MEDICATIONS: Cogentin 1 mg p.o. twice daily, Depakote ER 2,500 mg p.o. at bedtime, Synthr oid 50 mcg p.o. daily, lithium carbonate ER 600 mg p.o. daily and 900 mg p.o. q.h.s., metformin HCl 500 mg p.o. b.i.d. with meals, and olanzapine 15 mg p.o. b.i.d. DISCHARGE DIAGNOSES: The same as at time of admission they are as follows. 1. Bipolar disorder type 1, most recent episode manic with psychotic features. 2. Cannabis use disorder, severe. 3. Alcohol use disorder, severe. 4. Amphetamine use disorder, in remission. 5. Stimulant use disorder, in remission. 6. Opioid use disorder, in remission. 7. Cocaine use disorder, in remission. 8. Hallucinogen use disorder, in remission. 9. Psychosocial stressors include multiple recent hospitalizations, dropping out of college, financ ially supported by his parents, unemployed, lack of social support, difficulty with interpersonal re lationships, long-term recovery from substance use, and recent onset of severe mental illness. DISPOSITION: The patient will be transferred back to [facility] under the care of Dr. Paez. FOLLOWUP: The patient will be treated through [facility] at [facility] for the foreseeable future. LEGAL COURSE: The patient was on a short-term certification, and that short-term certification is h eld by both [facility] and [facility]. They will follow the patient when he goes [facility] to [facility]. /[id number]/MODL
== END 2017-03-18 11:06 | DRG 885 ==
LOC: EDUNIT# → BBEH 03-04 01:55
PROVIDERS: ADMIT Specialist; ATTEND Psychiatry & Neurology Psychiatry
DX: F31.2 Bipolar disorder, current episode manic severe with psychotic features (principal); F12.90 Cannabis use, unspecified, uncomplicated; Z72.89 Other problems related to lifestyle; E03.9 Hypothyroidism, unspecified; F17.200 Nicotine dependence, unspecified, uncomplicated; R00.0 Tachycardia, unspecified
CPT/HCPCS: 80305; G0480

== ENCOUNTER 2018-09-02 11:33 | Inpatient (IN) | payer OTHER ==
--- NOTE | 2018-09-02 13:40 | ASMTTCLDSP ---
[facility] Discharge Disposition Disposition: Answers: Admit Disposition Notes: Notes: Transfer admission to [facility] from [facility]. [facility] records faxed to [facility]. Was patient given the Answers: Not applicable Inpatient Behavioral Health Prohibited Belongings List while in the ED? For inpatient [facility] admission, the following psychiatrist agreed to accept patient for admission to Behavioral Health ([facility]): Type of Hold: Answers: M1/72-hour Hold Hold initiated by: Answers: Police Date Signed: 09/02/2018 01:39 PM Electronically Signed By:Gómez Ha
[2018-09-02] MEDS ORDERED: NICOTINE POLACRILEX 2 MG GUM B PRN (17:21)
[2018-09-02] MEDS ORDERED: MAG HYDROX/AL HYDROX/SIMETH 30 ML UDCUP PO PRN (17:21)
[2018-09-02] MEDS ORDERED: OLANZapine DISINTEGR 10 MG TAB PO PRN (17:21)
[2018-09-02] MEDS ORDERED: ACETAMINOPHEN 325 MG TAB PO PRN (17:21)
[2018-09-02] MEDS ORDERED: LORazepam 0.5 MG TAB PO PRN (17:21)
[2018-09-02] MEDS ORDERED: MAGNESIUM HYDROXIDE 30 ML UDCUP PO PRN (17:21)
[2018-09-02] MEDS: clonazePAM 1 MG TAB PO SCH (21:05)
[2018-09-03] MEDS: ARIPiprazole 10 MG TAB PO SCH (08:21)
--- NOTE | 2018-09-03 09:25 | ASMTBHMTP ---
ELIANA Master Treatment Plan Master Treatment Plan Answers: Impaired Reality for: Date: 09/03/2018 Diagnosis on Admission: Schizoaffective Disorder Expected length of stay: 3-5 Days Reason for admission: Notes: Per [facility] Evaluation - 23 year old male brought to ED by [employer] on M1. Pt. rested in the ED overnight and evaluation was completed with pt in the morning. Security reported throughout the night, pt would periodically stand up and appear to be speaking to someone that was not there and then pt would lay back in bed. Pt. was alert and cooperative for evaluation this morning. Pt. was disorganized in his thinking and stated that he had left where he was living "days ago" to go to "[place]" and he planned to get there "by walking south". Pt. stated he was picked up by the police last night "because he couldn't sleep because it was cold". Pt. reports he has a history of Bipolar with manic features but is too disorganized to provided any specifics or details about his history. Patient's stated presenting problems: Notes: Pt stated he is in the hospital because he "almost froze to ". Patient's goals for treatment: Notes: Pt. stated he has "no goals" while in the hospital Patient's strengths: Notes: Pt stated he has "no" strengths Identify supports outside of hospital: Notes: Pt stated he has "no one". Discharge criteria: Notes: Psychotic symptoms will be reduced or eliminated with return to baseline functioning in affect, thinking, and behavior prior to discharge. Initial disposition plan/considerations: Notes: Pt. stated he plans to go to [facility]" after he discharges. Master Treatment Plan Required Signatures Psychiatrist signature: Answers: Psychiatrist: RN on-shift signature: Answers: RN: Patient signature: Answers: Patient: Date Signed: 09/03/2018 09:24 AM Electronically Signed By:Brooke Dillon
--- NOTE | 2018-09-03 12:08 | ASMTCMCOM ---
CM Note CM Note Notes: Pt. and CC completed MTP, signed and placed in pt's chart. Pt. denied any current legal issues. Pt. denied drinking alcohol, denied THC use and denied all other substance use. Pt. stated he was last hospitalized "last year or two years ago", adding he "don't remember". Pt. presents as alert, guarded, paranoid, passive with his answers, good eye contact, in bed, and somewhat cooperative. Staff report pt. sleeping 11 hours and being medication compliant. Date Signed: 09/03/2018 12:07 PM Electronically Signed By:Brooke Dillon
--- NOTE | 2018-09-03 18:33 | BAPA ---
DATE OF SERVICE: 09/03/2018 CHIEF COMPLAINT: "I was at my home in [place] and went through worm hole." HISTORY OF PRESENT ILLNESS: The patient is a 23-year-old male with a history of bipolar disorder, substance abuse and recurrent psychosis. He is managed by Dr. Hurst at [facility] as an outpatient. He lives in [place] with his father. He apparently left his father's home several days ago and was missing. He was found agitated in [place], speaking nonsensically , and was taken to the hospital for evaluation. When I interviewed him today, he states that he went through a "worm hole and lost track of time." He talks extensively about there being 2 realities and switching back and forth all the time. He states that "I thought I was in [place] and that Annalisa and Arden were switched." He states that he was "just hanging out with my dogs." He goes on to state, however, that he was being pursued by "evil forces" and he was being protected by the dogs because there were "demon shifters." He is interactive and pleasant, but is disorganized and derails frequently. He is unable to give a coherent history, often talking about his delusions and paranoia. TLC report gives no additional information, and I do not have the [place] ER evaluation in front of me at this time. Summary by infant caregiver indicates that the patient was uncooperative, disorganized, and unable to give much useful information. PAST PSYCHIATRIC HISTORY: Significant for numerous previous psychiatric hospitalizations. His last hospitalization at this facility was from 03/04 to 03/18/2017. He has been followed by [facility] for several years. ALLERGIES: No known medical allergies. CURRENT MEDICATIONS: 1. Aripiprazole 30 mg daily. 2. Benztropine 2 mg at bedtime. 3. Clonazepam 1 mg twice daily. 4. Lamictal 175 mg at bedtime. 5. Levothyroxine 125 mcg at bedtime. 6. [place] carbonate 1200 mg at bedtime. 7. Metformin 1000 mg at bedtime. 8. Olanzapine 10 mg at bedtime. 9. Nepro propranolol SR 60 mg at bedtime. PAST MEDICAL HISTORY: Significant for a history of several minor concussions in the past, though otherwise noncontributory. He had surgery on his thumb in the past. SOCIAL HISTORY: The patient is a high school graduate and had several semesters of college at [employer]. He apparently dropped out after his acute mental illness. He has no developmental issues. He is single with no dependents and lives with his father in [place]. SUBSTANCE USE HISTORY: The patient has history of alcohol abuse dating back to his teenage years, and heavy daily marijuana use. The patient is unable to answer questions regarding his current use. He has also used opiates, amphetamines, LSD, cocaine and ecstasy in the past. He had a DUI at the age of 17. FAMILY HISTORY: Patient's father is a recovering alcoholic and has a history of depression. Mother has history of alcohol abuse, depression and an eating disorder. ADMISSION LABORATORY: No additional labs were drawn. Labs were reviewed over the phone from [facility] with no significant abnormalities noted. MENTAL STATUS EXAMINATION: Reveals a thin though healthy-appearing male. He is dressed in hospital scrubs. His hair is cut very short, but neatly. He interacts well with the examiner, maintaining good if not prolonged eye contact. His affect is somewhat labile, smiling incongruently at times. He seemed excited to tell us stories about his experiences worm holes and other dimensions, though at times will completely derail and sit staring at the floor until he is prompted. His thought process is disorganized. His thought content reveals grandiose and paranoid delusions. He is alert and oriented to person, place, time, and situation. There is no evidence of intoxication or delirium. His intellect appears to be average, possibly above average premorbidly. His current insight and judgment appear to be poor. He denies any thoughts of suicide, homicide, or violence. IMPRESSION: Schizoaffective disorder, chronic with acute exacerbation; possible substance-induced psychosis; cannabis use disorder, severity unknown; chronic illness, recurrent illness. Patient is a pleasant 23-year-old patient with schizoaffective disorder. He presents at this time in acute decompensation, related possibly to substance abuse, but definitely to treatment non adherence. He is on quite a bit of medication, but is still highly symptomatic. I do not have a full understanding of his highest level of recent functioning on this regimen, however. PLAN: 1. We will admit to [facility] Unit on an M1 hold. 2. Will restart his previous outpatient medications, though discuss with Dr. Hurst if there are any adjustments he would like to see happen. 3. Will also obtain collateral information from the patient's family to better understand patient's recent level of function. Estimated length of stay is 5-7 days. /[id number]/MODL MTDD
[2018-09-03] MEDS: clonazePAM 1 MG TAB PO SCH (20:07)
[2018-09-03] MEDS: metFORMIN HCL 500 MG TAB PO SCH (20:07)
[2018-09-03] MEDS: BENZTROPINE MESYLATE 1 MG TAB PO SCH (20:07)
[2018-09-03] MEDS: OLANZapine 10 MG TAB PO SCH (20:08)
[2018-09-03] MEDS: LEVOTHYROXINE 125 MCG TAB PO SCH (20:08)
[2018-09-03] MEDS: LITHIUM CARBONATE ER 300 MG TAB PO SCH (20:08)
[2018-09-03] MEDS: lamoTRIgine 100 MG TAB PO SCH (20:08)
[2018-09-03] MEDS: lamoTRIgine 25 MG TAB PO SCH (20:08)
[2018-09-03] MEDS: PROPRANOLOL SR 60 MG CAP PO SCH (20:22)
[2018-09-03] MEDS ORDERED: BENZTROPINE MESYLATE 2 MG TAB PO SCH (21:00)
--- NOTE | 2018-09-04 00:34 | BCON ---
INTERNAL MEDICINE CONSULTATION DATE OF CONSULTATION: 09/03/2018 REFERRING PHYSICIAN: Rex Kc NP REASON FOR REFERRAL: Medical clearance for inpatient behavioral health stay. HISTORY OF PRESENT ILLNESS: This patient was picked up by the [place] [employer] when he was found sleeping outside of a store in the cold yesterday. He appeared disorganized. He reported that he was walking south. He was brought to the [facility] emergency department from where he was transferred to [facility] inpatient behavioral health unit for psychiatric care. He is currently without any acute complaints. PAST MEDICAL HISTORY: 1. Mental health issues with diagnosis of severe bipolar 1 disorder with psychotic behavior. 2. Hypothyroidism. MEDICATIONS: Prior to admission: 1. Metformin 500 mg twice daily with meals. 2. Olanzapine 15 mg p.o. twice daily. 3. Magnesium hydroxide 30 mL p.o. daily p.r.n. 4. Mylanta 30 mL p.o. q.6 hours p.r.n. 5. [place] 600 mg daily and 900 mg at bedtime. 6. Levothyroxine 50 mcg p.o. daily. 7. Ibuprofen 200 mg p.o. q.4 hours p.r.n. 8. Divalproex ER 2500 mg p.o. at bedtime. 9. Benztropine 1 mg p.o. twice daily. 10. Acetaminophen 650 mg p.o. q.4 hours p.r.n. ALLERGIES: There are no known drug allergies, but he reports a history of tachycardia with paliperidone. SOCIAL HISTORY: He was not forthcoming regarding his living situation. He denies alcohol, tobacco, marijuana or other substances of abuse. FAMILY HISTORY: Noncontributory. REVIEW OF SYSTEMS: He is not aware of weight loss though there is a 5-6 kg weight loss documented in the chart since February of 2017. He reports he has a good appetite. He denies nausea, vomiting, diarrhea, or constipation. He denies chest pain or palpitations. He denies dysuria or urinary frequency. He denies joint pain or joint swelling. Though he has been outside for a while, he denies any symptoms of frostbite or other cold injuries. Otherwise, a 10- point review of systems is negative. PHYSICAL EXAM: VITAL SIGNS: Blood pressure is 121/57, heart rate is 68, respiratory rate is 16, oxygen saturation is 98% on room air, temperature is 36.6 degrees centigrade. His weight is 81.6 kg for a body mass index of 20.8. GENERAL: This is a thin man who appears his chronologic age, lying in bed, sits up to meet the examiner, cooperative, and in no acute distress. HEENT: Extraocular movements are intact. Pupils are equal, round, reactive to light. Mucous members are moist. Dentition is in good condition. NECK: Supple HEART : Regular rate and rhythm with no murmurs, rubs, or gallops. LUNGS: Clear to auscultation bilaterally. ABDOMEN: Benign. EXTREMITIES: There is no cyanosis , clubbing, or edema. NEUROLOGIC: He is alert. Orientation was not checked. Cranial nerves 2-12 are grossly intact. There is no focal weakness. Sensation is intact to light touch and gait is normal. LABORATORY STUDIES: From [facility] thyroid studies revealed a slightly high T4 at 1.77 with the upper limit of normal being 1.46. TSH was also slightly high at 3.97. CBC showed a slightly elevated white blood cell count, but otherwise was normal. CMP showed normal renal function and electrolytes. Liver functions overall were normal but for a significant elevation of AST at 151, with the upper limit of normal being 37. Urine drug screen was negative for any substances of abuse and breath alcohol was 0. ASSESSMENT/RECOMMENDATIONS: 1. Mental health issues pending further evaluation and management per Psychiatry and the mental health team. 2. Weight loss of unclear etiology. Also unclear whether there was truly an indication for metformin though it might have been ordered to prevent weight gain with antipsychotics and anticonvulsants. He has been losing weight. Advise consideration of discontinuing metformin. 3. Hypothyroidism with a mixed picture on his thyroid tests. One would not expect both an elevated TSH and elevated T4 unless he had excess TSH secretion from the pituitary. Review of recent labs in the [facility] computer system reveals an elevated prolactin at 30.4 in February of last year and further elevation of 33.1 in April of last year, so it is conceivable that he has aberrant hormone secretion from his pituitary gland. The elevated prolactin may have been due to antipsychotics. The thyroid abnormalities are minor. Advise further evaluation as an outpatient and consider referral to Endocrinology. Unclear whether he may have had change in his antipsychotic medications in response to the elevated prolactin level. 4. Elevated AST. AST is less specific than ALT for liver disease as it is present in other organs including cardiac muscle, skeletal muscle, kidney and brain. Again, he does not appear ill otherwise and has no signs or symptoms of advanced liver disease. Advise repeat testing of liver functions as an outpatient. I see no medical contraindications to this patient's continued stay on the inpatient behavioral health unit or to any psychiatric medications or procedures. Thank you very much for including me in the care of this patient and please do not hesitate to contact me or the hospitalist service should there be need for further medical evaluation. /[id number]/MODL MTDD
[2018-09-04] MEDS: ARIPiprazole 10 MG TAB PO SCH (08:18)
--- NOTE | 2018-09-04 08:34 | PDMN ---
Medical Necessity Medical necessity: Pt meets inpt criteria per MD order and [facility] [id number], Schizophrenia Spectrum Disorders, Adult: Inpatient Care, 6 days. 23 y/o admitted w/schizoaffective disorder, chronic w/acute exacerbation, possible substance induced psychosis, on M1 hold requiring inpt psychiatric hospitalization.
--- NOTE | 2018-09-04 11:53 | ASMTCMCOM ---
CM Note CM Note Notes: CC checked in with ct. who reported that he is doing OK. Ct. is able to carry a conversation but dive into psychotic content fairly easily During meeting with staff this morning he reported that he likes "streaching the truth a little bit". He participates in some groups and refrains from others. Discharge plan: return to [facility] when stable. Ct. is on board with plan. Date Signed: 09/04/2018 11:52 AM Electronically Signed By:Kathia Louis
--- NOTE | 2018-09-04 13:56 | SOAPPROG ---
SOAP Progress Note Assessment/Plan: Assessment: Plan: 09/04/18 13:58 Psychosis: Remains quite ill. Will [facility]. Exchanged messages with Dr. Hurst. Will contact him to determine if he has recommendations. Subjective: Pt seen, discussed with staff. Interviewed in Treatment Team meeting. He remains quite psychotic, continuing to focus on wormholes and alternative universes. He becomes defensive when asked about these and when he reads the treatment plan indicating "poor reality testing." Team worked to emphasize the need for "being grounded." He is compliant with medications. Slept >9 hours last night. Objective: Vital Signs Temp Pulse Resp BP Pulse Ox 36.5 C 68 16 112/69 100 09/04/18 06:00 09/04/18 06:00 09/04/18 06:00 09/04/18 06:00 09/04/18 06:00 MSE: Calm, though rather unpredictable in tone of responses. Affect is somewhat labile, becoming hostile quickly and then laughing inappropriately. Mood is "great." TP is disorganized. TC reveals ongoing paranoid and bizarre delusions. - Time Spent With Patient Time Spent With Patient: 25" ICD10 Worksheet Patient Problems: Problems Problem Status Onset Cannabis use disorder, severe, dependence Acute Severe manic bipolar 1 disorder with psychotic behavior Acute Suicidal behavior Acute
[2018-09-04] MEDS: BENZTROPINE MESYLATE 1 MG TAB PO SCH (20:32)
[2018-09-04] MEDS: LITHIUM CARBONATE ER 300 MG TAB PO SCH (20:32)
[2018-09-04] MEDS: lamoTRIgine 100 MG TAB PO SCH (20:33)
[2018-09-04] MEDS: lamoTRIgine 25 MG TAB PO SCH (20:33)
[2018-09-04] MEDS: OLANZapine 10 MG TAB PO SCH (20:34)
[2018-09-04] MEDS: PROPRANOLOL SR 60 MG CAP PO SCH (20:34)
[2018-09-04] MEDS: metFORMIN HCL 500 MG TAB PO SCH (20:34)
[2018-09-04] MEDS: LEVOTHYROXINE 125 MCG TAB PO SCH (20:34)
[2018-09-04] MEDS: clonazePAM 1 MG TAB PO SCH (20:34)
--- NOTE | 2018-09-05 08:31 | ASMTCMCOM ---
CM Note CM Note Notes: CC checked in with ct. who said that he is doing OK. Ct. did not have much to report but said that he slept well. Ct. did not want to engage in further conversation. Date Signed: 09/05/2018 08:31 AM Electronically Signed By:Kathia Louis
[2018-09-05] MEDS: ARIPiprazole 10 MG TAB PO SCH (08:42)
--- NOTE | 2018-09-05 15:21 | SOAPPROG ---
SOAP Progress Note Assessment/Plan: Assessment: 23yo with Schizoaffective d/o, chronic with acute exacerbation, cannabis use d/o , and possible substance induced psychosis admitted in acutely decompensated state related to medication nonadherence and possibly also due to substance use 09/05/18 15:51 per [facility] staff, slept 9hr. compliant with meds. 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 "they changed my diagnosis from bioplar to ' impaired reality'". Denied medication s/e. denied physical complaints. MSE: Tall, CM, fair/good eye contact, appears somewhat tired, nml speech rate/ vol, mood (no response, rather just shrugged shoulders), affect restricted, thought process/content- disorganized, denied AH/VH or any SI/HI. A&Ox3. Plan: seems with some early improvement since restarting medications continue current meds Objective: Vital Signs Temp Pulse Resp BP Pulse Ox 36.4 C 65 14 113/64 100 09/05/18 06:00 09/05/18 06:00 09/05/18 06:00 09/05/18 06:00 09/05/18 06:00 - Time Spent With Patient Time Spent With Patient: 15min - Pending Discharge Pending Discharge Within 24 Hours: No Pending Discharge Within 48 Hours: No ICD10 Worksheet Patient Problems: Problems Problem Status Onset Cannabis use disorder, severe, dependence Acute Severe manic bipolar 1 disorder with psychotic behavior Acute Suicidal behavior Acute
[2018-09-05] MEDS: BENZTROPINE MESYLATE 1 MG TAB PO SCH (20:39)
[2018-09-05] MEDS: LEVOTHYROXINE 125 MCG TAB PO SCH (20:40)
[2018-09-05] MEDS: PROPRANOLOL SR 60 MG CAP PO SCH (20:40)
[2018-09-05] MEDS: LITHIUM CARBONATE ER 300 MG TAB PO SCH (20:40)
[2018-09-05] MEDS: metFORMIN HCL 500 MG TAB PO SCH (20:40)
[2018-09-05] MEDS: OLANZapine 10 MG TAB PO SCH (20:41)
[2018-09-05] MEDS: lamoTRIgine 25 MG TAB PO SCH (20:41)
[2018-09-05] MEDS: lamoTRIgine 100 MG TAB PO SCH (20:41)
[2018-09-05] MEDS: clonazePAM 1 MG TAB PO SCH (20:41)
[2018-09-06] MEDS: ARIPiprazole 10 MG TAB PO SCH (08:50)
--- NOTE | 2018-09-06 19:08 | SOAPPROG ---
SOAP Progress Note Assessment/Plan: Assessment: 23yo with Schizoaffective d/o, chronic with acute exacerbation, cannabis use d/o , and possible substance induced psychosis admitted in acutely decompensated state related to medication nonadherence and possibly also due to substance use 09/05/18 15:51 per [facility] staff, slept 9hr. compliant with meds. 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 "they changed my diagnosis from bioplar to ' impaired reality'". Denied medication s/e. denied physical complaints. MSE: Tall, CM, fair/good eye contact, appears somewhat tired, nml speech rate/ vol, mood (no response, rather just shrugged shoulders), affect restricted, thought process/content- disorganized, denied AH/VH or any SI/HI. A&Ox3. Plan: seems with some early improvement since restarting medications continue current meds 09/06/18 18:57 per staff, slept 11hr, attending some groups talked to staff about wanting to be a Druid and then about wanting to be a motion picture commentator continues with bizarre thoughts, talked of enjoying experiences of visual distortions and doesn't want to wear his glasses for this reason as well Father visited today again, notes pt with some early improvement. MSE: Tall, CM, resting in bed, good eye contact, some incr spont speech, articulate with nml rate/vol speech, calm, mood "fine", affect restricted, thoughts still illogical and disorganized but linear responses to brief questions, denied AH/VH or any SI/HI. A&Ox3. denied any s/e to medications. noted with slight tremor with outstretched hands. no cogwheel rigidity on exam. Plan: improving gradually continue current meds Objective: Vital Signs Temp Pulse Resp BP Pulse Ox 36.4 C 65 14 113/64 100 09/05/18 06:00 09/05/18 06:00 09/05/18 06:00 09/05/18 06:00 09/05/18 06:00 - Time Spent With Patient Time Spent With Patient: 15min - Pending Discharge Pending Discharge Within 24 Hours: No Pending Discharge Within 48 Hours: No ICD10 Worksheet Patient Problems: Problems Problem Status Onset Cannabis use disorder, severe, dependence Acute Severe manic bipolar 1 disorder with psychotic behavior Acute Suicidal behavior Acute
[2018-09-06] MEDS: metFORMIN HCL 500 MG TAB PO SCH (20:28)
[2018-09-06] MEDS: LITHIUM CARBONATE ER 300 MG TAB PO SCH (20:28)
[2018-09-06] MEDS: PROPRANOLOL SR 60 MG CAP PO SCH (20:29)
[2018-09-06] MEDS: lamoTRIgine 25 MG TAB PO SCH (20:29)
[2018-09-06] MEDS: clonazePAM 1 MG TAB PO SCH (20:30)
[2018-09-06] MEDS: OLANZapine 10 MG TAB PO SCH (20:30)
[2018-09-06] MEDS: LEVOTHYROXINE 125 MCG TAB PO SCH (20:30)
[2018-09-06] MEDS: lamoTRIgine 100 MG TAB PO SCH (20:30)
[2018-09-06] MEDS: BENZTROPINE MESYLATE 1 MG TAB PO SCH (20:30)
[2018-09-07] MEDS: ARIPiprazole 10 MG TAB PO SCH (09:11)
--- NOTE | 2018-09-07 11:49 | ASMTCMCOM ---
CM Note CM Note Notes: CC out-reached FOC for poss family meeting for tomorrow [phone]. No answer left a detailed VM with all necessary return contact information etc. Date Signed: 09/07/2018 11:48 AM Electronically Signed By:Mik Jordan
--- NOTE | 2018-09-07 15:15 | SOAPPROG ---
SOAP Progress Note Assessment/Plan: Assessment: Plan: 09/04/18 13:58 Psychosis: Remains quite ill. Will [facility]. Exchanged messages with Dr. Hurst. Will contact him to determine if he has recommendations. 09/07/18 15:18 Psychosis: Some improvement over the WE. He remains clearly gravely disabled. He cannot effectively communicate his needs, understand his treatment plan or participate in his care. He is disorganized, internally preoccupied and delusional. Will CCM. May be a candidate for stepdown to residential in a few days, but it will be longer before he will be able to go home. Subjective: Pt seen, discussed with staff, chart reviewed. He reports feeling "pretty good " though now states he is "not ready to go home yet." He remains aloof, internally focused, disorganized. Unable to participate consistently in groups or communicate effectively with others. I talked to him about the possibility of going to [place] and he now states he is "not sure if I want to do that." Cannot explain why. He also states that "my dad wants me to take Clozaril." I spoke to CC about scheduling a family meeting to discuss treatment and discharge plans. Objective: Vital Signs Temp Pulse Resp BP Pulse Ox 36.8 C 70 14 109/62 99 09/07/18 06:00 09/07/18 06:00 09/07/18 06:00 09/07/18 06:00 09/07/18 06:00 MSE: Adequately groomed, guarded, but cooperative. Affect is restricted with occasional inappropriate smile. Mood is "how would I know?" TP is disorganized with frequent derailing. TC reveals internal preoccupation, possible RIS. Struggles to give goal-directed answers to questions. Appears confused at times and becomes irritable if pressed on any question. - Time Spent With Patient Time Spent With Patient: 25" ICD10 Worksheet Patient Problems: Problems Problem Status Onset Cannabis use disorder, severe, dependence Acute Severe manic bipolar 1 disorder with psychotic behavior Acute Suicidal behavior Acute
[2018-09-07] MEDS: LITHIUM CARBONATE ER 300 MG TAB PO SCH (20:29)
[2018-09-07] MEDS: OLANZapine 10 MG TAB PO SCH (20:29)
[2018-09-07] MEDS: BENZTROPINE MESYLATE 1 MG TAB PO SCH (20:29)
[2018-09-07] MEDS: PROPRANOLOL SR 60 MG CAP PO SCH (20:29)
[2018-09-07] MEDS: clonazePAM 1 MG TAB PO SCH (20:29)
[2018-09-07] MEDS: metFORMIN HCL 500 MG TAB PO SCH (20:29)
[2018-09-07] MEDS: lamoTRIgine 25 MG TAB PO SCH (20:30)
[2018-09-07] MEDS: LEVOTHYROXINE 125 MCG TAB PO SCH (20:30)
[2018-09-07] MEDS: lamoTRIgine 100 MG TAB PO SCH (20:30)
[2018-09-08] MEDS: ARIPiprazole 10 MG TAB PO SCH (08:44)
--- NOTE | 2018-09-08 09:20 | ASMTCMCOM ---
CM Note CM Note Notes: CC out reached FOC (PATTIE) at [phone]; no answer left detailed VM with all necessary return contact information. CC was able to receive the correct number from out-patient therapist Ricardo, who should be coming on the unit to see the client later today.* Date Signed: 09/08/2018 09:20 AM Electronically Signed By:Mik Jordan
--- NOTE | 2018-09-08 11:54 | ASMTCMCOM ---
CM Note CM Note Notes: CC spoke to FOC who noted that he would be available for a family meeting tomorrow at 3pm. CC informed provider, etc. Additionally, out-patient/residental treatment team will visit with client today on the unit around 1:30pm. Client remains on the unit, mostly pleasant, quite, affect is somewhat guarded, remains alert. Date Signed: 09/08/2018 11:53 AM Electronically Signed By:Mik Jordan
--- NOTE | 2018-09-08 16:10 | SOAPPROG ---
SOAP Progress Note Assessment/Plan: Assessment: Plan: 09/04/18 13:58 Psychosis: Remains quite ill. Will [facility]. Exchanged messages with Dr. Hurst. Will contact him to determine if he has recommendations. 09/07/18 15:18 Psychosis: Some improvement over the WE. He remains clearly gravely disabled. He cannot effectively communicate his needs, understand his treatment plan or participate in his care. He is disorganized, internally preoccupied and delusional. Will CCM. May be a candidate for stepdown to residential in a few days, but it will be longer before he will be able to go home. 09/08/18 16:10 Psychosis: About the same. Unclear what baseline level of disorganization is. Await impressions from CR team and family meeting tomorrow. Will increase olanzapine back to proper dose, check EKG tomorrow. Subjective: Pt seen, discussed with staff. Reports feeling "just fine." Remains compliant with meds. Agreeable to visiting with CR staff this afternoon. Family meeting scheduled for today delayed until tomorrow. He continues to struggle with interactions with others due to disorganized thoughts and prominent (though improving) delusions. Dr. Hurst states the proper dose of olanzapine is 40mg at HS. Objective: Vital Signs Temp Pulse Resp BP Pulse Ox 36.8 C 64 14 108/60 98 09/08/18 06:00 09/08/18 06:00 09/08/18 06:00 09/08/18 06:00 09/08/18 06:00 MSE: Guarded, though cooperative. Activity is normal. Speech is halting, delayed at times. Affect is restricted, odd. Mood is "good." TP is disorganized with continued derailment. TC reveals continued bizarre and paranoid delusions. Denies AH's, though outpatient team reports patient hears constant voices. - Time Spent With Patient Time Spent With Patient: 15" ICD10 Worksheet Patient Problems: Problems Problem Status Onset Cannabis use disorder, severe, dependence Acute Severe manic bipolar 1 disorder with psychotic behavior Acute Suicidal behavior Acute
[2018-09-08] MEDS: PROPRANOLOL SR 60 MG CAP PO SCH (20:29)
[2018-09-08] MEDS: lamoTRIgine 100 MG TAB PO SCH (20:29)
[2018-09-08] MEDS: BENZTROPINE MESYLATE 1 MG TAB PO SCH (20:29)
[2018-09-08] MEDS: LEVOTHYROXINE 125 MCG TAB PO SCH (20:29)
[2018-09-08] MEDS: LITHIUM CARBONATE ER 300 MG TAB PO SCH (20:29)
[2018-09-08] MEDS: metFORMIN HCL 500 MG TAB PO SCH (20:29)
[2018-09-08] MEDS: OLANZapine 10 MG TAB PO SCH (20:29)
[2018-09-08] MEDS: lamoTRIgine 25 MG TAB PO SCH (20:29)
[2018-09-08] MEDS: clonazePAM 1 MG TAB PO SCH (20:29)
[2018-09-09] MEDS: ARIPiprazole 10 MG TAB PO SCH (10:01)
[2018-09-09] MEDS: LEVOTHYROXINE 125 MCG TAB PO SCH (18:54)
[2018-09-09] MEDS: lamoTRIgine 100 MG TAB PO SCH (18:54)
[2018-09-09] MEDS: BENZTROPINE MESYLATE 1 MG TAB PO SCH (18:54)
[2018-09-09] MEDS: lamoTRIgine 25 MG TAB PO SCH (18:54)
[2018-09-09] MEDS: OLANZapine 10 MG TAB PO SCH (18:54)
[2018-09-09] MEDS: metFORMIN HCL 500 MG TAB PO SCH (18:55)
[2018-09-09] MEDS: clonazePAM 1 MG TAB PO SCH (18:55)
[2018-09-09] MEDS: LITHIUM CARBONATE ER 300 MG TAB PO SCH (18:56)
[2018-09-09] MEDS: PROPRANOLOL SR 60 MG CAP PO SCH (19:03)
[2018-09-10 06:53] VITALS: BP 113/65
[2018-09-10] MEDS: ARIPiprazole 10 MG TAB PO SCH (07:49)
--- NOTE | 2018-09-10 08:51 | ASMTBHDC ---
Notes Note: Notes: CC confirmed all necessary follow up apts: Follow up with: [facility] [address] [place] [id number] Next Appt: September 10 (09/10/18) at 9:45am Date Signed: 09/10/2018 08:50 AM Electronically Signed By:Mik Jordan
--- NOTE | 2018-09-10 09:59 | CPEKG ---
Test Reason : OPEN Blood Pressure : / mmHG Vent. Rate : 070 BPM Atrial Rate : 070 BPM P-R Int : 136 ms QRS Dur : 098 ms QT Int : 396 ms P-R-T Axes : 072 082 081 degrees QTc Int : [address] ELEV, PROBABLE NORMAL EARLY REPOL PATTERN Confirmed by Radames Schaffer ([id number]) on 09/10/2018 9:58:49 AM Referred By: Rex Kc Confirmed By:Radames Schaffer
--- NOTE | 2018-09-10 17:46 | BDS ---
[f rep st] BEHAVIORAL HEALTH DISCHARGE SUMMARY REASON FOR ADMISSION: Patient is a 23-year-old male with a history of schizoaffective diso rder. He was admitted on transfer from [facility] after he had left his father's home where he normally lives and was missing for several days. He was found in a disorganized and ps ychotic state by police and taken to the Emergency Department on a hold. We accepted him in transfer for acute care treatment. A full description of the events preceding admission can be found in his admission history dated 09/03/2018. ADMITTING DIAGNOSES: 1. Schizoaffective disorder, chronic with acute exacerbation. 2. Possible substance induced psychosis. 3. Cannabis use disorder, severity unknown. 4. Chronic illness. 5. Recurrent illness. Admitting physical examination performed by Dr. Michael Waldron revealed elevated AST. Possible hypo thyroidism on labs. Admitting laboratory drawn at [facility] showed a slightly elevated T4 at 1.77, TSH sli ghtly up at 3.97. Normal CMP, normal CBC. Elevated AST at 151. Urine drug screen was negative for all substances. Alcohol was less than detectable. HOSPITAL COURSE: [facility] on an M1 hold . He was extremely disorganized and delusional when he arrived. He slept and I was unable to arouse him initially, but then he did sit up and talk with me around 11:30. He was pleasant and interactiv e, though very delusional. He stated that he had fallen down a worm hole and went on to describe num erous, very vivid experiences he had, being in alternate realities and these realities shifting back and forth. An example he repeated numerous times was walking down a large tunnel filled with water u p to his shins. He states that if he looked directly ahead that everything "was floating" and that h e was progressing down the tunnel, but if he looked down or to the sides, then he would immediately g o backwards. He states that he had this experience for several days while wandering around in the co [place]ity. He adamantly denied using any drugs, but did state that he was not taking his prescribed me dications. He stated that he believed that he was still in an "alternate reality." He was very plea kalyan and agreeable to continue his previous outpatient medications. We obtained a list from [facility] and I was able to speak with Dr. Reno Kurtz during his hospitalization. We continued his medicines as previously prescribed outpatient, though for some reason, the Zyprexa was started at 10 mg rather than the 40 mg that he previously had been taking. He stabilized well on these medications and I felt that we were able to leave it at the 10 mg given the outpatient team's plan to switch to clozapine. The patient's hospitalization was uncomplicated. We were able to hold a family meeting with his [facility] er that went very well. Both the patient and his father showed a lot of positive regard for each [facility] er and willingness to work together. Patient was agreeable to going to [facility] for further stab ilization on discharge from the hospital. Patient's father was supportive of this. CONDITION AT DISCHARGE: Stable. His affect was euthymic, stable, and appropriate. He was much more organized and continued to experience these delusions, but they were less prominent and certainly le ss intrusive. He is having no thoughts of suicide, homicide, or violence. He is compliant with his medications and tolerating them well with no side effects. He was forward thinking and hopeful. DISCHARGE MEDICATIONS: Abilify 30 mg daily, Cogentin 2 mg at h.s., clonazepam 1 mg at h.s., Lamictal 175 mg at h.s., Synthroid 125 mcg at h.s., lithium ER 1200 mg at h.s., metformin 1000 mg at h.s., ol anzapine 10 mg at h.s., propranolol SR 60 mg at h.s. DISCHARGE DIAGNOSES: 1. Schizoaffective disorder, bipolar type, chronic, with acute exacerbation. No evidence of acute s ubstance use. 2. Medication and treatment nonadherence. 3. Hypothyroidism. 4. Chronic illness. 5. Recurrent illness. The patient was released from the hospital with staff from [facility] to go to [facility]. The patient's attitude at time of discharge was positive. The patient was placed on a short-term cer tification with expiration of his M1 hold. The short-term certification remained in place at the ralf e of his discharge, as I had not heard back from [facility] in regard to whether they wanted t o continue it or not. The patient was a full code throughout his stay. There are no pending labs or studies at time of discharge. The patient was given nicotine, alcohol, cannabis, and metabolic screenings and he declined further i nterventions for any of these issues. It is of note that we did obtain an EKG on the day of discharge due to his multiple psychotropic medi cations. This was actually quite good with a QTc of 420 msec. /[id number]/MODL
== END 2018-09-10 09:40 | disposition home or self-care (01) | DRG 885 ==
LOC: BBEH 16:15
PROVIDERS: ADMIT Registered Nurse; ATTEND Registered Nurse
DX: F25.9 Schizoaffective disorder, unspecified (principal); Z91.19 Patient's noncompliance with other medical treatment and regimen; E03.9 Hypothyroidism, unspecified